=== PATIENT | male | born 1985 | race Caucasian/White ===

== ENCOUNTER → 2019-08-13 07:55 | Outpatient (CLI) | payer BC, SELFPAY ==
[2019-07-24 09:18] VITALS: BMI 26.0
--- NOTE | 2019-08-13 08:08 | ECHOD_ITS ---
Reason For Study: PALPITATIONS Procedure This was a 2D Doppler, Color Flow transthoracic echocardiogram. Exam performed in department. Left Ventricle Normal size and thickness. The estimated ejection fraction is 55 %. No regional wall motion abnormalities noted. Right Ventricle Normal size and thickness. Normal systolic function. Atria Normal left atrium. Normal right atrium. Normal atrial septum. Mitral Valve The mitral valve is structurally normal. No prolapse or stenosis seen. Trivial mitral valve insufficiency. Tricuspid Valve Normal tricuspid valve. Trivial tricuspid valve insufficiency. Unable to estimate RV systolic pressure due to insufficient tricuspid regurgitant envelope. Aortic Valve Normal aortic valve. Trisinus/trileaflet aortic valve. Pulmonic Valve Normal pulmonic valve. Great Vessels Normal aortic root. Normal arch. Normal inferior vena cava. Inferior vena cava collapse with sniff. Pericardium/Pleural No pericardial effusion. MMode/2D Measurements & Calculations LVIDd: 5.5 cm IVSd: 0.88 cm Ao root diam: 3.4 cm LVIDs: 3.7 cm LVPWd: 0.94 cm RVDd: 3.4 cm FS: 31.9 % LAV(MOD-bp): 46.1 ml EDV(MOD-sp4): 112.3 ml EDV(MOD-sp2): 102.8 ml LAV(MOD-bp) Indexed: 22.0 ml/m2 ESV(MOD-sp4): 45.8 ml EF(MOD-sp2): 54.0 % LAV(MOD-sp2): 50.1 ml EF(MOD-sp4): 59.2 % LAV(MOD-sp4): 40.4 ml SV(MOD-sp4): 66.4 ml SV(MOD-sp2): 55.5 ml LA A4 area: 16.3 cm2 LA dimension(2D): 4.3 cm RA A4 area: 12.5 cm2 Time Measurements MV dec time: 0.32 sec Doppler Measurements & Calculations MV E max kelvin: 53.2 cm/sec Lat Peak E' Kelvin: 16.1 cm/sec Med Peak E' Kelvin: 9.2 cm/sec MV A max kelvin: 40.0 cm/sec E/E' lat: 3.3 E/E' med: 5.8 MV E/A: 1.3 Ao V2 max: 111.2 cm/sec LV V1 max: 80.7 cm/sec Ao max P.9 mmHg LV V1 max P.6 mmHg Interpretation Summary The estimated ejection fraction is 55 %. Trivial mitral valve insufficiency. Trivial tricuspid valve insufficiency. Unable to estimate RV systolic pressure due to insufficient tricuspid regurgitant envelope. Compared to echo report dated 07/09/2010, no appreciable changes noted. Ordering Physician: Johny Alba Referring Physician: NOLAN JIMÉNEZ Performed By: Coretta Burton, EDD, RVT
== END ==
PROVIDERS: PCP Internal Medicine; Referring Provider Internal Medicine Cardiovascular Disease; Visit Provider Internal Medicine Cardiovascular Disease
DX: R00.2 Palpitations (principal)
CPT/HCPCS: 93306

== ENCOUNTER → 2020-02-19 12:08 | Outpatient (CLI) | payer BC, SELFPAY ==
[2020-02-06 13:00] VITALS: BMI 27.3
== END ==
PROVIDERS: PCP Internal Medicine; Referring Provider Nurse Practitioner Family; Visit Provider Nurse Practitioner Family
DX: R00.2 Palpitations (principal)
CPT/HCPCS: 93225; 93226

== ENCOUNTER 2020-08-14 11:14 | Outpatient (RCR) | payer BC, SELFPAY ==
[2020-02-06 13:00] VITALS: BMI 27.3
== END 2020-09-18 23:59 ==
LOC: IMMUN 11:14
PROVIDERS: PCP Internal Medicine; Visit Provider Family Medicine
DX: Z23 Encounter for immunization (principal)
CPT/HCPCS: 0001A; 0002A; 91300

== ENCOUNTER → 2024-10-11 | Outpatient (CLI) | payer BC, SELFPAY ==
--- NOTE | 2024-10-11 12:40 | RAD_ITS ---
PROCEDURE: HAND MIN 3 VIEWS 10/11/2024 REASON FOR EXAM: SPRAIN OF METACARPOPHALANGEAL JOINT OF RIGHT LITTLE FINGER, INITI TECHNIQUE: HAND MIN 3 VIEWS COMPARISON: None FINDINGS: Bones: No fracture seen. Joints: Normal alignment. Soft tissues: Soft tissues are unremarkable. Other: RAD/Hand Min 3 Views IMPRESSION: NEGATIVE HAND SERIES Reading Location: [place] [id number]
== END | disposition home or self-care (01) ==
LOC: RAD 12:36
PROVIDERS: PCP Internal Medicine
DX: S63.656A Sprain of metacarpophalangeal joint of right little finger, initial encounter (principal); M79.644 Pain in right finger(s)
CPT/HCPCS: 73130

== ENCOUNTER → 2025-03-11 | Outpatient (CLI) | payer BC, SELFPAY ==
--- NOTE | 2025-03-11 14:07 | ECHOD_ITS ---
Reason For Study Reason For Study: PVC's Procedure This was a 2D Doppler, Color Flow transthoracic echocardiogram. Exam performed in department. Left Ventricle Normal-sized left ventricle. Normal left ventricular wall thickness. Left ventricular EF by Chun's biplane: 58%. Normal diastolic function. No regional wall motion abnormalities noted. Right Ventricle Normal right ventricle. Normal systolic function. Unable to estimate RV systolic pressure due to insufficient tricuspid regurgitant envelope. Atria The left and right atria are normal. Right atrial pressure estimated at: 3 mmHg. Normal atrial septum. Mitral Valve Normal mitral valve. No mitral stenosis. Trace mitral regurgitation. Tricuspid Valve Normal tricuspid valve. Trace tricuspid regurgitation. No tricuspid stenosis. Aortic Valve Trileaflet aortic valve. No hemodynamically significant aortic stenosis. No aortic regurgitation. Pulmonic Valve Normal pulmonic valve. No pulmonic stenosis. Trace pulmonic regurgitation. Great Vessels Normal sized aortic root. Normal ascending aorta. Pericardium/Pleural No pericardial effusion. MMode/2D Measurements & Calculations LVIDd: 5.3 cm IVSd: 0.90 cm Ao root diam: 3.2 cm LVIDs: 3.6 cm LVPWd: 0.83 cm RVDd: 3.3 cm FS: 32.7 % LAV(MOD-bp): 46.1 ml LVAd ap4: 30.3 cm2 SV(MOD-sp4): 53.5 ml LAV(MOD-bp) Indexed: 21.9 ml/m2 LVLd ap4: 8.3 cm SI(MOD-sp4): 25.4 ml/m2 LAV(MOD-sp2): 49.1 ml EDV(MOD-sp4): 92.7 ml LAV(MOD-sp4): 39.5 ml EDV(sp4-el): 94.0 ml LVAs ap4: 17.9 cm2 LVLs ap4: 6.8 cm ESV(MOD-sp4): 39.2 ml ESV(sp4-el): 39.9 ml EF(MOD-sp4): 57.7 % EF(sp4-el): 57.6 % SV(sp4-el): 54.1 ml LA A4 area: 16.3 cm2 LA dimension(2D): 4.2 cm RA A4 area: 11.4 cm2 Time Measurements MV dec time: 0.15 sec Doppler Measurements & Calculations MV E max kelvin: 85.9 cm/sec Lat Peak E' Kelvin: 17.4 cm/sec Med Peak E' Kelvin: 10.9 cm/sec MV A max kelvin: 76.3 cm/sec E/E' lat: 4.9 E/E' med: 7.9 MV E/A: 1.1 Ao V2 max: 139.1 cm/sec LV V1 max: 108.7 cm/sec MV dec slope: 571.5 cm/sec2 Ao max P.8 mmHg LV V1 max P.7 mmHg Ao V2 mean: 98.5 cm/sec LV V1 mean P.6 mmHg Ao mean P.4 mmHg LV V1 mean: 75.1 cm/sec Ao V2 VTI: 30.9 cm LV V1 VTI: 23.3 cm AV (velocity ratio): 0.75 PA V2 max: 112.2 cm/sec PI end-d kelvin: 90.9 cm/sec ECHO/Echo Complete Interpretation Summary Normal left ventricular systolic function, with EF: 58% by Chun's biplane. Normal left ventricular diastolic function Normal left ventricular wall motion Normal right ventricular systolic function No hemodynamically significant valvular disease Ordering Physician: Dejon Beck Referring Physician: Fran Watson Performed By: Tamiko Beck, EDD, RVT
--- OUTSIDE RECORDS SUMMARY | 2025-03-11 18:10 | XMS RPT_ITS | CCD ---
Author Organization [facility] Care Team Providers Care Group Account Director Name Role Phone Amirneni, Vamsee K. Unavailable Unavailable Amirneni, Vamsee K. Unavailable Unavailable Amirneni, Fran Ward Primary Care Provider FRAN WATSON Referring Unavail able AMIRNENADEGE, ELENHCARLOS WARD Primary Care Unavail able AMIRNENADEGE, FRAN WARD Admitting Unavail able Ele Watson MDdccarlos Ward Primary Care Provide r Fran Watson MD [facility] Care Provide r Fran Watson MD Unavailable FRAN WATSON Attending Unavail able AMIRELE CROUCHNHCARLOS WARD Primary Care Unavail able GREGORIO JAMES Attending Unavailable AMIRWILLA, FRAN WARD Referring Unavail able AMIRWILLA, FRAN WARD Primary Care Unavail able AMIRNENI, FRAN MORRISSEYISHNA Admitting Unavail able AMIRNENI, FRAN BLANCHARDNA Referring Unavail able AMIRNENADEGE, FRAN BLANCHARDNA Attending Unavail able AMIRNENADEGE, ELENHCARLOS WARD Primary Care Unavail able Fran Watson MD Unavailable SARAHY PIERCE Referring Unavailable SARAHY PIERCE Admitting Unavailable AMIRWILLA, FRAN WARD Primary Care Unavail able SARAHY PIERCE Attending Unavailable FRAN WATSON Primary Care Unavail able Dr. Fran Watson MD Primary Care Provider Louann Luo Attending Provider Louann Luo Referring Provider Dejon Beck Attending Unavailable [facility] Primary Care Unavailable [facility] Referring Unavailable Dejon Beck Attending Unavailable [facility] Primary Care Unavailable [facility] Referring Unavailable Louann Luo Referring Unavailable [facility] Primary Care Unavailable Louann Luo Attending Unavailable Allergies Allergy Classification Reported Allergen(s) Allergy Type Date of Onset Reaction(s) Facility (20 sources) Penicillins; Translations: [PENICILLINS] Propensity to adverse reactions to drug 03-04-2019 Unknown [facility] Medications Current Medications Medication Drug Class(es) Dates Sig (Normalized) Sig (Original) azithromycin 250 mg oral tablet (3 sources) Macrolide Antimicrobial Start: 03-23-2024 End: 03-28-2024 take 2 tablets by mouth once daily, then take 1 tablet by mouth once daily azithromycin (Zithromax Z-Erick) 250 MG tablet Indications: Pneumonia of left lower lobe due to infectious organism Take 2 (two) tablets (500 mg total) by mouth daily for 1 day, THEN 1 (one) tablet (250 mg total) daily for 4 days. 6 tablet 03/23/2024 03/28/2024 Active Start: 04-30-2019 End: 06-10-2019 take 2 tablets by mouth once daily, then take 1 tablet by mouth, then take 1 tablet by mouth once daily azithromycin (Z-ERICK) 5 day dose pack Take two tablets by mouth on day 1, then one tablet by mouth once daily until finished. . 6 tablet 0 04/30/2019 06/10/2019 Discontinued Start: 04-30-2019 take 2 tablets by mo uth once daily, then take 1 tablet by mouth, then take 1 tablet by mouth once daily azithromycin (Z-ERICK) 5 day dose pack Take two tablets by mouth on day 1, then one tablet by mouth once daily until finished. . 6 tablet 0 04/30/2019 Active dextromethorphan hydrobromide 15 mg / guaiFENesin 400 mg / pseudoephedrine hydrochloride 60 mg oral tablet (1 source) alpha-Adrenergic Agonist, Uncompetitive L-bnjiht-G-aspartate Receptor Antagonist, Sigma-1 Agonist Start: 03-23-2024 take 1 tablet by mouth every six hours as needed nkjqjdsxynaxisv-PZ-lchuARDgalf 60-15-400 mg Tab Indications: Pneumonia of left lower lobe due to infectious organism Take 1 (one) tablet by mouth every 6 (six) hours as needed . 20 tablet 03/23/2024 Active Start: 03-23-2024 take 1 tablet by asia th every six hours as needed mxanhrvjhuaqgnu-YZ-xserBDJznda 60-15-400 mg Tab Indications: Pneumonia of left lower lobe due to infectious organism Take 1 (one) tablet by mouth every 6 (six) hours as needed . 20 tablet 03/23/2024 Active doxycycline hyclate 100 mg oral capsule (1 source) Tetracycline-class Drug Start: 06-18-2022 End: 06-28-2022 take 1 capsule by mouth twice daily doxycycline hyclate (VIBRAMYCIN) 100 MG capsule Indications: Sinusitis, unspecified chronicity, unspecified location Take 1 (one) capsule (100 mg total) by mouth 2 (two) times a day for 10 days . 20 capsule 0 06/18/2022 06/28/2022 Active [employer] (Nk) (1 source) Start: 01-31-2024 [employer] (Nk) Active January 31, 2024 12:00am Completed/Discontinued Medications Medication Drug Class(es) Dates Sig (Normalized) Sig (Original) benzonatate 100 mg oral capsule (2 sources) Non-narcotic Antitussive Start: 06-18-2022 End: 04-18-2023 benzonatate (Tessalon Perles) 100 MG capsule Indications: Acute cough Take one or two capsules every 8 hours as needed for cough. Do not chew. . 60 capsule 1 06/18/2022 04/18/2023 Discontinued calcium chloride 0.0014 meq/ml / potassium chloride 0.004 meq/ml / sodium chloride 0.103 meq/ml / sodium lactate 0.028 meq/ml injectable solution (1 source) Start: 10-18-2019 End: 10-18-2019 lactated [facility] infusion ciprofloxacin 500 mg oral tablet (2 sources) Quinolone Antimicrobial Start: 03-19-2019 End: 04-30-2019 take 1 tablet by mouth twice daily ciprofloxacin HCl (CIPRO) 500 MG tablet Take 1 (one) tablet (500 mg total) by mouth 2 (two) times a day . 14 tablet 0 03/19/2019 04/30/2019 Discontinued docusate sodium 100 mg oral capsule (8 sources) Start: 03-21-2019 End: 06-11-2019 take 2 capsules by mouth twice daily docusate sodium (COLACE) 100 MG capsule Take 2 (two) capsules (200 mg total) by mouth 2 (two) times a day . 60 capsule 1 03/21/2019 06/11/2019 Discontinued (Therapy completed) End: 03-21-2019 take 2 capsules by mouth once daily docusate sodium (COLACE) 100 MG capsule Take 200 mg by mouth daily . 0 03/21/2019 Discontinued (Reorder) 12 hr fexofenadine hydrochloride 60 mg / pseudoephedrine hydrochloride 120 mg extended release oral tablet (3 sources) alpha-Adrenergic Agonist, Histamine-1 Receptor Antagonist Start: 01-11-2021 End: 06-18-2022 take 1 tablet by mouth twice daily fexofenadine-pseudoePHEDrine (Sruthi-D 12 Hour) 60-120 mg per tablet Take 1 (one) tablet by mouth 2 (two) times a day . 60 tablet 2 01/11/2021 06/18/2022 Discontinued (Patient's Request) fluticasone propionate 0.05 mg/actuat metered dose nasal spray (4 sources) Corticosteroid Start: 01-11-2021 End: 06-18-2022 take 2 spray(s) nasal route once daily fluticasone propionate (FLONASE) 50 mcg/actuation nasal spray Instill 2 (two) sprays into each nostril daily . 16 g 2 02/05/2021 06/18/2022 Discontinued (Patient's Request) hyoscyamine sulfate 0.125 mg sublingual tablet (1 source) Start: 10-18-2019 End: 10-18-2019 hyoscyamine (LEVSIN/SL) SL tablet 125 mcg Start: 10-18-2019 End: 10-18-2019 hyoscyamine (LEVSIN/SL) SL t ablet 125 mcg iopamidol (ISOVUE-370) 76 % injection 75 mL (1 source) Start: 03-19-2019 End: 03-19-2019 iopamidol (ISOVUE-370) 76 % injection 75 mL 24 hr metoprolol succinate 25 mg extended release oral tablet (20 sources) beta-Adrenergic Nicole Start: 03-10-2017 End: 01-31-2024 take 1 tablet by mouth once daily Metoprolol Succinate 25 mg tablet extended release 24 hr Discontinued 25 mg PO daily 90 3 January 31, 2024 8:08am January 31, 2024 8:38am take 1 tablet by mouth once colt y metoprolol succinate (TOPROL-XL) 50 MG 24 hr tablet Take 25 mg by mouth daily . 0 Active metroNIDAZOLE 500 mg oral tablet (2 sources) Nitroimidazole Antimicrobial Start: 03-19-2019 End: 04-30-2019 take 1 tablet by mouth three times daily at mealtime metroNIDAZOLE (FLAGYL) 500 MG tablet Take 1 (one) tablet (500 mg total) by mouth 3 (three) times a day with meals . 21 tablet 0 03/19/2019 04/30/2019 Discontinued polyethylene glycol 3350 21041 mg powder for oral solution (6 sources) Osmotic Laxative End: 09-23-2019 polyethylene glycol (MIRALAX) 17 gram powder Take 17 g by mouth daily as needed . 0 09/23/2019 Discontinued (Therapy completed) predniSONE 20 mg oral tablet (2 sources) Start: 06-18-2022 End: 04-18-2023 predniSONE (DELTASONE) 20 MG tablet Indications: Acute cough Take 2 tablets daily for 5 days. . 10 tablet 0 06/18/2022 04/18/2023 Discontinued Problems Active Problems Problem Classification Problem Date Documented Da te Episodic/Chronic Cardiac dysrhythmias (17 sources) Ventricular premature beats; Translations: [Ventricular premature depolarization] Onset: 9 03-04-2019 Chronic Cardiac dysrhythmias (4 sources) Palpitations; Translations: [Palpitations] 03-14-2017 Episodic Disorders of teeth and jaw (1 source) Loss of teeth due to extraction; Translations: [Partial loss of teeth, unspecified cause, unspecified class] 2021 Episodic Immunizations and screening for infectious disease (5 sources) Patient encounter status; Translations: [Encounter for screening for human immunodeficiency virus [HIV]] Onset: 4 04-18-2023 Episodic Noninfectious gastroenteritis (2 sources) Colitis; Translations: [Colitis, acute] Onset: 9 03-21-2019 Episodic Nonspecific chest pain (1 source) Chest discomfort; Translations: [Other chest pain] 04-17-2017 Episodic Other diseases of veins and lymphatics (2 sources) Scrotal varices; Translations: [Scrotal varices] Onset: 4 Episodic Other gastrointestinal disorders (1 source) Chronic idiopathic constipation; Translations: [Chronic idiopathic constipation] 05-24-2023 Chronic Other lower respiratory disease (5 sources) Cough; Translations: [Cough] Onset: 1 Episodic Other male genital disorders (2 sources) Hydrocele, unspecified; Translations: [Hydrocele, unspecified] Onset: 4 Episodic Other male genital disorders (4 sources) Left testicular pain; Translations: [Left testicular pain] Onset: 4 Episodic Other screening for suspected conditions (not mental disorders or infectious disease) (5 sources) Viral screening status; Translations: [Encounter for screening for other viral diseases] Onset: 4 04-18-2023 Episodic Other upper respiratory disease (8 sources) Allergic rhinitis; Translations: [Other allergic rhinitis] Onset: 1 Chronic Other upper respiratory infections (1 source) Sinusitis; Translations: [Chronic sinusitis, unspecified] Chronic Pneumonia (except that caused by tuberculosis or sexually transmitted disease) (3 sources) Left lower zone pneumonia; Translations: [Pneumonia, unspecified organism] Onset: 4 03-23-2024 Episodic Unclassified (1 source) Acute cough; Translations: [Acute cough] Onset: 4 Past or Other Problems Problem Classification Problem Date Documented Date Episodic/Chronic Abdominal pain (20 sources) Left lower quadrant pain; Translations: [Left lower quadrant pain] Onset: 9 03-04-2019 Episodic Other diseases of veins and lymphatics (5 sources) Varicocele; Translations: [Scrotal varices] Onset: 4 05-01-2023 Episodic Other gastrointestinal disorders (20 sources) Chronic constipation; Translations: [Other constipation] Onset: 9 03-04-2019 Episodic Other male genital disorders (5 sources) Pain of left testicle; Translations: [Left testicular pain] Onset: 4 04-18-2023 Episodic Other male genital disorders (5 sources) Disorder of reproductive system; Translations: [Hydrocele, unspecified] Onset: 4 05-01-2023 Episodic Other upper respiratory infections (9 sources) Acute pharyngitis; Translations: [Posterior rhinorrhea] Onset: 1 Episodic Spondylosis; intervertebral disc disorders; other back problems (18 sources) Acute low back pain; Translations: [Acute bilateral low back pain without sciatica] Onset: 9 Resolved: 0 03-04-2019 Episodic Sprains and strains (1 source) Sprain of metacarpophalangeal joint of right little finger, initial encounter; Translations: [Sprain of metacarpophalangeal joint of right little finger, initial encounter] Onset: 5 Episodic Unclassified (1 source) Acute cough; Translations: [Acute cough] Onset: 4 Results Test Name Value Interpretation Reference Range Facility Cardiology Visit Reporton Cardiology Visit Report [facility] [facility] [place] [address] OFFICE VISIT Date of Service: 02/10/25 MR#: [id number] Acct: [id number] Name: BART HOOKER Rep #: [id number] : 1985 Provider: MADDI gorman Age/Sex: 40/M Location: [facility] Status: Signed HPI HPI History of Present Illness Details: This is a 40-year-old white male who presents today for outpatient cardiovascular follow-up of a history of underlying PVCs/nonsustained VT previously evaluated by [facility] by Dr. Dejon Ulloa of electrophysiology-2010. Based upon his history and information hand it appears he had undergone a noninvasive evaluation which included over time a transthoracic echocardiogram, a chest CTA, a cardiac MRI, a Holter monitor, as well as a sleep study. He did not require EPS/RFA. It appears that his ectopy was thought related to caffeine use. He notes as he decreased and discontinued his caffeine, along with being initially on beta-blockers and calcium channel blockers then back to beta-blockers. Beta-blockers ultimately discontinued as he was symptomatically doing well. He denies chest, arm, jaw, or neck discomfort. He states palpitations 1-2 times per month. He describes it as irregular (bird in the birdcage feeling). This lasts for less than 1 minuets maybe 15-30 seconds. This is improved since stopping wine He denies bilateral lower extremity edema. He denies claudication. He denies shortness of breath with activity, shortness of breath at rest, orthopnea, or PND. He denies chronic cough. He denies significant, sudden weight gain. He denies lightheadedness, dizziness, near-syncope, or syncope. He denies blood in urine, blood in stool, or epistaxis. He denies fever with chills. He denies myalgia. He denies fatigue. His exercise level has remained stable. 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: No Is patient in pain?: No Allergies Penicillins Allergy (Verified 01/31/24 08:38) Unknown Medications ???Medication ???Instructions ???Recorded ???Confirmed ???Type NK 01/31/24 02/10/25 History Ejection fraction %: 55 Have you fallen in the past year?: No PFSH Medical History Tachycardia Palpitations Chest discomfort Depression Anxiety Paroxysmal ventricular tachycardia Surgical History H/O wisdom tooth extraction Family History Grandfather CVA (cerebral vascular accident) Grandmother Myocardial infarction in her late 80's Social History Smoking Status: Never smoker alcohol intake: current alcohol intake frequency: 0-2 drinks per day substance use type: does not use caffeine: No ROS Const Const: Negative for fatigue, weakness, headache(s) or frequent falls Eyes Eyes: Negative for blurry vision ENT ENT: Negative for headache(s), dizziness or Nosebleed/epistaxis Cardio Chest Pain: No Palpitations: No Edema: None Muscle aches with walking: None Resp Respiratory: Negative for SOB with activity, SOB at rest or SOB orthopnea SOB lying down GI GI: Negative nausea, vomiting, heartburn, bright, red blood in stools or black,tarry stools : Negative for hematuria Musc Musc: Negative for muscle aches/ myalgia Skin Skin: Negative non-healing lesions or rash Neuro Neuro: Negative for dizziness, lightheadedness, near syncope, syncope, frequent falls, headache(s), weakness or blurry vision Endo Endo: Negative for fatigue Allergy Allergy/Immunology: Negative for rash Cardiology Exam Const Appearance: cooperative, healthy appearing, comfortable and no acute distress Nutritional Appearance: well nourished and overweight Orientation: alert, awake and oriented x3 Head Head: normal to inspection Ears: hearing grossly normal bilaterally Nose: external nose normal Face and Sinus: face symmetric Mouth: moist mucous membranes Eyes General: appearance normal, both eyes and all related structures Eyelids: eyelids normal EOM: EOM intact bilaterally Neck Neck: normal visual inspection and no JVD Carotids: normal carotid upstroke Chest Chest inspection: normal inspection of the chest, symmetric chest movement and normal respiratory effort; Negative cough Auscultation: Bilateral: Clear to Auscultation Cardio Rate: regular rate Rhythm: regular rhythm Heart sounds: S1 normal and S2 normal; Negative rub, schmidt (more content not included)... Normal [facility] Hand Min 3 Viewson Hand Min 3 Views [facility] Imaging Services [address] [place], [place] [id number] Hand Min 3 Views MR#: [id number] Acct: [id number] Name: BART HOOKER Rep #: [id number] : 1985 M 39 From: Regan freed MD PCP: Dr. Fran Watson MD Status: REG CLI Study: Hand Min 3 Views Date of Exam: 10/11/24 Exam# [id number] Ordering Dr: Louann Miller PA PROCEDURE: HAND MIN 3 VIEWS 10/11/2024 REASON FOR EXAM: SPRAIN OF METACARPOPHALANGEAL JOINT OF RIGHT LITTLE FINGER, INITI TECHNIQUE: HAND MIN 3 VIEWS COMPARISON: None FINDINGS: Bones: No fracture seen. Joints: Normal alignment. Soft tissues: Soft tissues are unremarkable. Other: RAD/Hand Min 3 Views IMPRESSION: NEGATIVE HAND SERIES Reading Location: [place] [address] CC: Dr. 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 This test has not been approved for use in asymptomatic patients and its performance in this patient population has not been evaluated. Negative results do not rule out the presence of SARS-CoV-2/COVID-19. COVID-19, Molecularon 2023 SARS-CoV-2 (COVID-19) RdRp gene JOSE ARMANDO+probe Ql (Resp) Not detected Not Detected [facility] Comment on above: Testing was performe d using the Alvarado ID NOW COVID-19 assay on the [employer] platform. This test has not been approved for use in asymptomatic patients and its performance in this patient population has not been evaluated. Negative results do not rule out the presence of SARS-CoV-2/COVID-19. POC INFLUENZA A/B MOLECULARo n 03-23-2024 POC INFLUENZA A, MOLECULAR Negative Normal Negative [facility] POC INFLUENZA B, MOLECULAR Negative Normal Negative [facility] POC Influenza A/B, Molecular on 03-23-2024 FLUAV RNA JOSE ARMANDO+probe Ql (Unsp spec) Negative Negative [facility] FLUBV RNA JOSE ARMANDO+probe Ql (Unsp spec) Negative Negative [facility] Interpretation and review of laboratory results Normal [facility] SARS-CoV-2 (COVID-19) RdRp g bulmaro JOSE ARMANDO+probe Ql (Resp)on 03-23-2024 Interpretation and review of laboratory results Normal [facility] XR CHEST AP/PA AND LATon XR CHEST AP/PA AND LAT EXAMINATION: XR CHEST AP/PA AND LAT HISTORY: ORDERING SYSTEM PROVIDED HISTORY: cough and fever x 3 days, TECHNOLOGIST PROVIDED HISTORY: Illness/Other Reason for exam: cough Cancer History: unknown Surgery, RadiationHistory: unknown Encounter Type: Initial Additional signs and symptoms: fever x's 3 days ORDERING SYSTEM PROVIDED DIAGNOSIS CODES: R05.1 Acute cough COMPARISON: Chest radiograph dated 06/18/2022. TECHNIQUE: PA and lateral views of the chest performed. FINDINGS: The trachea is midline. The heart size is normal. There is a large area of patchy left lower lobe airspace disease which in the right clinical setting is consistent with a pneumonia. There is minimal blunting of the left lateral costophrenic angle suggesting a trace amount of pleural fluid. There is no pulmonary vascular congestion. There is no pneumothorax or osseous abnormality. IMPRESSION: There is a large area of patchy left lower lobe airspace disease which in the right clinical setting is consistent with a pneumonia. There is minimal blunting of the left lateral costophrenic angle suggesting a trace amount of pleural fluid. Workstation ID: [id number] Dictated by: CATHERINE KNOWLES on [facility] Mar 23, 2024 12:41:11 PM EST Transcribed by: CATHERINE KNOWLES on [facility] Mar 23, 2024 12:41:11 PM EST Finalized by: CATHERINE KNOWLES on [facility] Mar 23, 2024 12:41:11 PM EST Normal [facility] Comment on above: Order Comment: Injur y/Trauma or Illness?:Illness/Other How long have you had these symptoms (acute/chronic)?:Acute Reason for exam?:cough History of cancer?:unknown Surgeries, chemotherapy, or radiation?:unknown Type of Exam?:Initial Additional signs and symptoms?:fever x's 3 days XR Chest PA and Lateral and AP lateral-decubituson 03-23-2024 There is a large area of patchy left lower lobe airspace disease which in the right clinical setting is consistent with a pneumonia. There is minimal blunting of the left lateral costophrenic angle suggesting a trace amount of pleural fluid. Workstation ID: [id number] [facility] EXAMINATION: XR CHEST AP/PA AND LAT HISTORY: ORDERING SYSTEM PROVIDED HISTORY: cough and fever x 3 days, TECHNOLOGIST PROVIDED HISTORY: Illness/Other Reason for exam: cough Cancer History: unknown Surgery, RadiationHistory: unknown Encounter Type: Initial Additional signs and symptoms: fever x's 3 days ORDERING SYSTEM PROVIDED DIAGNOSIS CODES: R05.1 Acute cough COMPARISON: Chest radiograph dated 06/18/2022. TECHNIQUE: PA and lateral views of the chest performed. FINDINGS: The trachea is midline. The heart size is normal. There is a large area of patchy left lower lobe airspace disease which in the right clinical setting is consistent with a pneumonia. There is minimal blunting of the left lateral costophrenic angle suggesting a trace amount of pleural fluid. There is no pulmonary vascular congestion. There is no pneumothorax or osseous abnormality. [facility] Catherine Knowles MD - 03/23/2024 EXAMINATION: XR CHEST AP/PA AND LAT HISTORY: ORDERING SYSTEM PROVIDED HISTORY: cough and fever x 3 days, TECHNOLOGIST PROVIDED HISTORY: Illness/Other Reason for exam: cough Cancer History: unknown Surgery, RadiationHistory: unknown Encounter Type: Initial Additional signs and symptoms: fever x's 3 days ORDERING SYSTEM PROVIDED DIAGNOSIS CODES: R05.1 Acute cough COMPARISON: Chest radiograph dated 06/18/2022. TECHNIQUE: PA and lateral views of the chest performed. FINDINGS: The trachea is midline. The heart size is normal. There is a large area of patchy left lower lobe airspace disease which in the right clinical setting is consistent with a pneumonia. There is minimal blunting of the left lateral costophrenic angle suggesting a trace amount of pleural fluid. There is no pulmonary vascular congestion. There is no pneumothorax or osseous abnormality. IMPRESSION: There is a large area of patchy left lower lobe airspace disease which in the right clinical setting is consistent with a pneumonia. There is minimal blunting of the left lateral costophrenic angle suggesting a trace amount of pleural fluid. Workstation ID: [id number] [facility] Radiology Study observation (narrative) [facility] XR Chest PA and Lateral and AP lateral-decubitusOrdered By: Catherine Knowles on 03-23-2024 [facility] Work Phone: Measure post void residualon 05-22-2023 Measure Post Void Residual 0 [facility] Urinalysis macro (dipstick) panel (U)Ordered By: Xochitl He on 05-22-2023 Bilirubin Ql (U) Negative Negative [facility] Glucose Ql (U) Negative Normal, Negative mg/dL [facility] Hemoglobin Ql (U) Negative Negative [facility] Interpretation and review of laboratory results Normal [facility] Ketones Ql (U) Negative Negative mg/dL [facility] Leukocyte esterase Test strip Ql (U) Negative Negative [facility] Nitrite Ql (U) Negative Negative [facility] pH (U) 7.0 [pH] 5.0 - 7.0 [facility] Protein Ql (U) Negative Negative mg/dL [facility] Specific gravity (U) [Rel density] 1.015 1.005 - 1.025 [facility] Urobilinogen Qn (U) 0.2 mg/dL <2.0, 0. 2, Normal, Negative, 1.0, 2.0, <1.0 [facility] US TESTICLE WITH COLOR FLOWo n 05-01-2023 US TESTICLE WITH COLOR FLOW EXAMINATION: US TESTICLE WITH COLOR FLOW HISTORY: ORDERING SYSTEM PROVIDED HISTORY: Testicular pain, left, TECHNOLOGIST PROVIDED HISTORY: Illness/Other Reason for exam: Left testicular pain intermittent for 2yrs Cancer History: unknown Surgery, RadiationHistory: unknown Encounter Type: Initial Additional signs and symptoms: no ORDERING SYSTEM PROVIDED DIAGNOSIS CODES: N50.812 Testicular pain, left COMPARISON: None TECHNIQUE: Grayscale and color imaging was performed FINDINGS: Scanning of the right scrotal sac demonstrates the right testicle to measure 3.9 x 2.7 x 2.3 cm. There is a homogeneous echotexture with no discrete solid or cystic masses. The epididymis appears normal. Scanning of the left scrotal sac demonstrates the left testicle to measure 3.9 x 2.1 x 3.2 cm. There is a homogeneous echotexture with no discrete solid or cystic masses. Color flow is noted. There is a small left hydrocele. Within the left scrotal sac there are several serpiginous sonolucencies with color flow with Valsalva consistent with a left varicocele. IMPRESSION: 1. Normal-appearing testicles with color flow. 2. Small left hydrocele. 3. Left varicocele Workstation ID: [id number] Dictated by: BART TAVERA on MonMay 01, 2023 8:15:19 AM EST Transcribed by: BART TAVERA on MonMay 01, 2023 8:15:19 AM EST Finalized by: BART TAVERA on MonMay 01, 2023 8:15:19 AM EST Normal [facility] Comment on above: Order Comment: Injur y/Trauma or Illness?:Illness/Other How long have you had these symptoms (acute/chronic)?:Chronic Reason for exam?:Left testicular pain intermittent for 2yrs History of cancer?:unknown Surgeries, chemotherapy, or radiation?:unknown Type of Exam?:Initial Additional signs and symptoms?:no XR Chest AP/PA and LATon No acute pulmonary findings. DPR/mll Workstation ID: [id number] EXAMINATION: XR CHEST AP/PA AND LAT 06/18/2022 5:02 pm HISTORY: ORDERING SYSTEM PROVIDED HISTORY: cough x 3 weeks, TECHNOLOGIST PROVIDED HISTORY: Illness/Other Reason for exam: cough Cancer History: n Surgery, RadiationHistory: n Encounter Type: Initial Additional signs and symptoms: none ORDERING SYSTEM PROVIDED DIAGNOSIS CODES: R05.1 Acute cough COMPARISON: January 11, 2021. FINDINGS: PA and lateral views of the chest demonstrate the lungs to be clear of consolidations and no effusions are identified. The heart size is within normal limits and the osseous structures appear intact. [facility] Bart Lerma MD - 06/18/2022 EXAMINATION: XR CHEST AP/PA AND LAT 06/18/2022 5:02 pm HISTORY: ORDERING SYSTEM PROVIDED HISTORY: cough x 3 weeks, TECHNOLOGIST PROVIDED HISTORY: Illness/Other Reason for exam: cough Cancer History: n Surgery, RadiationHistory: n Encounter Type: Initial Additional signs and symptoms: none ORDERING SYSTEM PROVIDED DIAGNOSIS CODES: R05.1 Acute cough COMPARISON: January 11, 2021. FINDINGS: PA and lateral views of the chest demonstrate the lungs to be clear of consolidations and no effusions are identified. The heart size is within normal limits and the osseous structures appear intact. IMPRESSION: No acute pulmonary findings. DPR/Open [facility] Workstation ID: [id number] [facility] Radiology Study observation (narrative) [facility] XR Chest AP/PA and LATOrdere d By: Bart Lerma on 06-18-2022 [facility] Work Phone: COVID-19, MOLECULARon 2020 SARS-CoV-2 (COVID-19) RNA JOSE ARMANDO+probe Ql (Unsp spec) Not detected Normal Not Detected [facility] Comment on above: Result Comment: This test was performed under the FDA's Emergency Use Authorization (EUA). Testing was performed using the Wong SARS-CoV-2 RT-PCR assay on the Pallavi Wong 6800 System. This test has not been approved for use in asymptomatic patients and its performance in this patient population has not been evaluated. Negative results do not rule out the presence of SARS-CoV-2/COVID-19. Fact sheets for this EUA can be found at the following links: For Healthcare Providers: https://www.fda.gov/media/005917/download For Patients: https://www.fda.gov/media/829074/download Performed By: #### L [id number] #### [facility] [address] [place] [address] Florentin Hayes M.D. [id number] COVID-19, MolecularOrdered B y: Bret Jones on 01-11-2021 SARS-CoV-2 (COVID-19) RNA JOSE ARMANDO+probe Ql (Resp) Not detected Not Detected [facility] Comment on above: This test was perfor med under the FDA's Emergency Use Authorization (EUA). Testing was performed using the Wong SARS-CoV-2 RT-PCR assay on the Pallavi Wong 6800 System. This test has not been approved for use in asymptomatic patients and its performance in this patient population has not been evaluated. Negative results do not rule out the presence of SARS-CoV-2/COVID-19. Fact sheets for this EUA can be found at the following links: For Healthcare Providers: https://www.fda.gov/media/050197/download For Patients: https://www.fda.gov/media/270877/download SARS-CoV-2 (COVID-19) RNA NA A+probe Ql (Resp)Ordered By: Bret Jones on 01-11-2021 Interpretation and review of laboratory results Normal [facility] XR CHEST AP/PA AND LATon 1. Clear lungs. No acute cardiopulmonary disease. Workstation ID: [id number] GE RIS EXAMINATION: XR CHEST AP/PA AND LAT 01/11/2021 8:42 am HISTORY: ORDERING SYSTEM PROVIDED HISTORY: Cough, TECHNOLOGIST PROVIDED HISTORY: Illness/Other Reason for exam: cough x 1.5 months Cancer History: n Surgery, RadiationHistory: n Encounter Type: Initial Additional signs and symptoms: n ORDERING SYSTEM PROVIDED DIAGNOSIS CODES: R05.9 Cough FINDINGS: The lungs are clear. There is no focal lung consolidation, pleural effusion or pneumothorax. Pulmonary vasculature is within normal limits. The cardiomediastinal silhouette is normal. Jeferson Randall MD - 01/11/2021 EXAMINATION: XR CHEST AP/PA AND LAT 01/11/2021 8:42 am HISTORY: ORDERING SYSTEM PROVIDED HISTORY: Cough, TECHNOLOGIST PROVIDED HISTORY: Illness/Other Reason for exam: cough x 1.5 months Cancer History: n Surgery, RadiationHistory: n Encounter Type: Initial Additional signs and symptoms: n ORDERING SYSTEM PROVIDED DIAGNOSIS CODES: R05.9 Cough FINDINGS: The lungs are clear. There is no focal lung consolidation, pleural effusion or pneumothorax. Pulmonary vasculature is within normal limits. The cardiomediastinal silhouette is normal. IMPRESSION: 1. Clear lungs. No acute cardiopulmonary disease. Workstation ID: [id number] [facility] Radiology Study observation (narrative) [facility] XR CHEST AP/PA AND LATOrdere d By: Jeferson Lee on 01-11-2021 [facility] Work Phone: Otheron 06-10-2019 No acute abdominal process identified. Workstation ID: [id number] [facility] EXAMINATION: XR ABDO MEN /KUB/FLAT PLATE/1 VIEW HISTORY: LLQ abdominal pain COMPARISON: None TECHNIQUE: Supine view of the abdomen FINDINGS: A nonobstructive bowel gas pattern is demonstrated. There is nothing to suggest organomegaly or soft tissue mass. No abnormal intraabdominal calcifications are identified. The osseous structures are intact. [facility] Interface, Rad In Fu ji Speechq - 06/10/2019 10:20 AM EDT EXAMINATION: XR ABDOMEN /KUB/FLAT PLATE/1 VIEW HISTORY: LLQ abdominal pain COMPARISON: None TECHNIQUE: Supine view of the abdomen FINDINGS: A nonobstructive bowel gas pattern is demonstrated. There is nothing to suggest organomegaly or soft tissue mass. No abnormal intraabdominal calcifications are identified. The osseous structures are intact. IMPRESSION: No acute abdominal process identified. Workstation ID: [id number] [facility] CT ABDOMEN PELVIS WITH CONTR Constance 03-19-2019 1. Moderate colonic stool burden with questionable minimal sigmoid colitis. There is no bowel obstruction. 2. No acute solid organ pathology. No calcified gallstones. Workstation ID: [id number] [facility] EXAMINATION: CT ABDO MEN PELVIS WITH CONTRAST HISTORY: ORDERING SYSTEM PROVIDED HISTORY: LLQ abdominal pain, TECHNOLOGIST PROVIDED HISTORY: Illness/Other Reason for exam: llq pain Encounter Type: Initial Additional signs and symptoms: none ORDERING SYSTEM PROVIDED DIAGNOSIS CODES: R10.32 LLQ abdominal pain COMPARISON: None TECHNIQUE: CT examination of the abdomen and pelvis following the administration of intravenous contrast. Coronal and sagittal reformations were performed. Dose reduction techniques were achieved by using automated exposure control and/or adjustment of mA and/or kV according to patient size and/or use of iterative reconstruction technique. CONTRAST: IOPAMIDOL 76 % INTRAVENOUS SOLUTION - 75 mL, FINDINGS: The imaged heart is normal in size. The lung bases are clear. There is a 1.2 cm cystic density lesion in the liver. The liver is otherwise unremarkable. The spleen and pancreas appear normal. There are no calcified gallstones. There is no adrenal mass. There is no renal mass. There is no obstructive uropathy. The urinary bladder is unremarkable. The prostate is not enlarged. There is a moderate amount of colonic stool present. There is enteric contrast within the stomach and small bowel as well as the proximal colon. No small bowel wall thickening is seen. There is slight wall thickening of the proximal-mid sigmoid colon. There is no bowel dilatation or obstruction. The appendix is not visualized and may be absent. There is no inflammation at the cecal tip. There is no pneumoperitoneum or ascites. There is no abdominal aortic aneurysm. No lymphadenopathy is seen. There is no acute osseous pathology. [facility], Rad In Fu ji Speechq - 03/19/2019 11:09 AM EST EXAMINATION: CT ABDOMEN PELVIS WITH CONTRAST HISTORY: ORDERING SYSTEM PROVIDED HISTORY: LLQ abdominal pain, TECHNOLOGIST PROVIDED HISTORY: Illness/Other Reason for exam: llq pain Encounter Type: Initial Additional signs and symptoms: none ORDERING SYSTEM PROVIDED DIAGNOSIS CODES: R10.32 LLQ abdominal pain COMPARISON: None TECHNIQUE: CT examination of the abdomen and pelvis following the administration of intravenous contrast. Coronal and sagittal reformations were performed. Dose reduction techniques were achieved by using automated exposure control and/or adjustment of mA and/or kV according to patient size and/or use of iterative reconstruction technique. CONTRAST: IOPAMIDOL 76 % INTRAVENOUS SOLUTION - 75 mL, FINDINGS: The imaged heart is normal in size. The lung bases are clear. There is a 1.2 cm cystic density lesion in the liver. The liver is otherwise unremarkable. The spleen and pancreas appear normal. There are no calcified gallstones. There is no adrenal mass. There is no renal mass. There is no obstructive uropathy. The urinary bladder is unremarkable. The prostate is not enlarged. There is a moderate amount of colonic stool present. There is enteric contrast within the stomach and small bowel as well as the proximal colon. No small bowel wall thickening is seen. There is slight wall thickening of the proximal-mid sigmoid colon. There is no bowel dilatation or obstruction. The appendix is not visualized and may be absent. There is no inflammation at the cecal tip. There is no pneumoperitoneum or ascites. There is no abdominal aortic aneurysm. No lymphadenopathy is seen. There is no acute osseous pathology. IMPRESSION: 1. Moderate colonic stool burden with questionable minimal sigmoid colitis. There is no bowel obstruction. 2. No acute solid organ pathology. No calcified gallstones. Workstation ID: [id number] [facility] Vital Signs Date Time Vital Sign Value Performing Clinician Bartolome mullins 03-23-2024 09:16-0500 Body height 182.9 cm Sarahy Pierce PA-C Work Phone: [facility] 03-23-2024 09:16-0500 Body mass index (BMI) [Ratio] 23.73 kg/m2 [place] Pierce PA-C Work Phone: [facility] 03-23-2024 09:16-0500 Body temperature 99.1 [degF] Sarahy Pierce PA-C Work Phone: [facility] 03-23-2024 09:16-0500 Body weight 79.38 kg [place] PA-C Work Phone: [facility] 03-23-2024 09:16-0500 Diastolic blood pressure 75 mm[Hg] [place] Pierce PA-C Work Phone: [facility] 03-23-2024 09:16-0500 Heart rate 98 /min [place] Pierce PA-C Work Phone: [facility] 03-23-2024 09:16-0500 Respiratory rate 16 /min Sarahy Pierce PA-C Work Phone: [facility] 03-23-2024 09:16-0500 SaO2% (BldA) [Mass fraction] 96 % Sarahy Pierce PA-C Work Phone: [facility] 03-23-2024 09:16-0500 Systolic blood pressure 106 mm[Hg] Sarahy Pierce PA- C Work Phone: [facility] 05-22-2023 13:10-0500 Diastolic blood pressure 92 mm[Hg] Gregorio James MD Work Phone: [facility] 05-22-2023 13:10-0500 Heart rate 99 /min Grgeorio James MD Work Phone: [facility] 05-22-2023 13:10-0500 SaO2% (BldA) [Mass fraction] 98 % Gregorio James MD Work Phone: [facility] 05-22-2023 13:10-0500 Systolic blood pressure 131 mm[Hg] Gregorio James MD Work Phone: [facility] 04-18-2023 16:55-0500 Diastolic blood pressure 90 mm[Hg] Fran Watson MD Work Phone: [facility] 04-18-2023 16:55-0500 Systolic blood pressure 124 mm[Hg] Fran Watson MD Work Phone: [facility] 04-18-2023 16:23-0500 Body height 182.9 cm Fran Watson MD Work Phone: [facility] 04-18-2023 16:23-0500 Body mass index (BMI) [Ratio] 28.86 kg/m2 Fran Watson MD Work Phone: [facility] 04-18-2023 16:23-0500 Body temperature 98.2 [degF] Fran Watson MD Work Phone: [facility] 04-18-2023 16:23-0500 Body weight 96.53 kg Fran Watson MD Work Phone: [facility] 04-18-2023 16:23-0500 Heart rate 91 /min Fran Watson MD Work Phone: [facility] 04-18-2023 16:23-0500 Respiratory rate 16 /min Fran Watson MD Work Phone: [facility] 04-18-2023 16:23-0500 SaO2% (BldA) [Mass fraction] 96 % Fran Watson MD Work Phone: [facility] 06-18-2022 17:02-0400 Body height 182.9 cm Tara Connors ELECTRONIC WARFARE OPERATOR Work Phone: [facility] 06-18-2022 17:02-0400 Body mass index (BMI) [Ratio] 27.53 kg/m2 Tara Connors ELECTRONIC WARFARE OPERATOR Work Phone: [facility] 06-18-2022 17:02-0400 Body temperature 98.01 [degF] Tara Connors ELECTRONIC WARFARE OPERATOR Work Phone: [facility] 06-18-2022 17:02-0400 Body weight 92.08 kg Tara Connors ELECTRONIC WARFARE OPERATOR Work Phone: [facility] 06-18-2022 17:02-0400 Diastolic blood pressure 88 mm[Hg] Tara Connors ELECTRONIC WARFARE OPERATOR Work Phone: [facility] 06-18-2022 17:02-0400 Heart rate 95 /min Tara Connors ELECTRONIC WARFARE OPERATOR Work Phone: [facility] 06-18-2022 17:02-0400 Respiratory rate 16 /min Tara Connors ELECTRONIC WARFARE OPERATOR Work Phone: [facility] 06-18-2022 17:02-0400 SaO2% (BldA) [Mass fraction] 96 % Tara Connors ELECTRONIC WARFARE OPERATOR Work Phone: [facility] 06-18-2022 17:02-0400 Systolic blood pressure 125 mm[Hg] Tara Conn CN P Work Phone: [facility] 01-11-2021 08:12-0400 Body height 182.9 cm Fran Watson MD Work Phone: [facility] 01-11-2021 08:12-0400 Body mass index (BMI) [Ratio] 27.94 kg/m2 Fran Watson MD Work Phone: [facility] 01-11-2021 08:12-0400 Body temperature 98.29 [degF] Fran Watson MD Work Phone: [facility] 01-11-2021 08:12-0400 Body weight 93.44 kg Fran Watson MD Work Phone: [facility] 01-11-2021 08:12-0400 Diastolic blood pressure 83 mm[Hg] Fran Watson MD Work Phone: [facility] 01-11-2021 08:12-0400 Heart rate 96 /min Fran Watson MD Work Phone: [facility] 01-11-2021 08:12-0400 Respiratory rate 18 /min Fran Watson MD Work Phone: [facility] 01-11-2021 08:12-0400 SaO2% (BldA) [Mass fraction] 97 % Fran Watson MD Work Phone: [facility] 01-11-2021 08:12-0400 Systolic blood pressure 125 mm[Hg] Fran Watson MD Work Phone: [facility] 10-18-2019 15:02-0400 BP Diastolic 79 mm[Hg] [facility] 10-18-2019 15:02-0400 BP Systolic 127 mm[Hg] [facility] 10-18-2019 15:02-0400 Pulse (Heart Rate) 82 /min [facility] 10-18-2019 15:02-0400 Pulse Oximetry 98 % [facility] 10-18-2019 15:02-0400 Respiratory Rate 15 /min [facility] 10-18-2019 14:45-0400 Body Temperature 97.9 [degF] [facility] 10-18-2019 11:43-0400 BMI (Body Mass Index) 25.9 kg/m2 [facility] 10-18-2019 11:43-0400 Body weight 86.64 kg [facility] 10-18-2019 11:43-0400 Height 182.9 cm [facility] 09-23-2019 08:06-0400 BMI (Body Mass Index) 26.99 kg/m2 [facility] 09-23-2019 08:06-0400 Body Temperature 97.11 [degF] [facility] 09-23-2019 08:06-0400 Body weight 90.27 kg [facility] 09-23-2019 08:06-0400 BP Diastolic 84 mm[Hg] [facility] 09-23-2019 08:06-0400 BP Systolic 120 mm[Hg] [facility] 09-23-2019 08:06-0400 Height 182.9 cm [facility] 09-23-2019 08:06-0400 Pulse (Heart Rate) 74 /min [facility] 09-23-2019 08:06-0400 Pulse Oximetry 98 % [facility] 06-11-2019 09:00-0400 BMI (Body Mass Index) 26.04 kg/m2 [facility] 06-11-2019 09:00-0400 Body Temperature 97.9 [degF] [facility] 06-11-2019 09:00-0400 Body weight 87.09 kg [facility] 06-11-2019 09:00-0400 BP Diastolic 84 mm[Hg] [facility] 06-11-2019 09:00-0400 BP Systolic 120 mm[Hg] [facility] 06-11-2019 09:00-0400 Height 182.9 cm [facility] 06-11-2019 09:00-0400 Pulse (Heart Rate) 79 /min [facility] 06-11-2019 09:00-0400 Pulse Oximetry 99 % [facility] 06-10-2019 08:41-0400 BMI (Body Mass Index) 26.07 kg/m2 [facility] 06-10-2019 08:41-0400 Body Temperature 98.49 [degF] [facility] 06-10-2019 08:41-0400 Body weight 87.18 kg [facility] 06-10-2019 08:41-0400 BP Diastolic 81 mm[Hg] [facility] 06-10-2019 08:41-0400 BP Systolic 120 mm[Hg] [facility] 06-10-2019 08:41-0400 Height 182.9 cm [facility] 06-10-2019 08:41-0400 Pulse (Heart Rate) 91 /min [facility] 06-10-2019 08:41-0400 Pulse Oximetry 98 % [facility] 06-10-2019 08:41-0400 Respiratory Rate 18 /min [facility] 04-30-2019 16:30-0500 BMI (Body Mass Index) 25.93 kg/m2 [facility] 04-30-2019 16:30-0500 Body Temperature 102.6 [degF] [facility] 04-30-2019 16:30-0500 Body weight 86.73 kg [facility] 04-30-2019 16:30-0500 BP Diastolic 77 mm[Hg] [facility] 04-30-2019 16:30-0500 BP Systolic 133 mm[Hg] [facility] 04-30-2019 16:30-0500 Height 182.9 cm [facility] 04-30-2019 16:30-0500 Pulse (Heart Rate) 123 /min [facility] 04-30-2019 16:30-0500 Pulse Oximetry 96 % [facility] 04-30-2019 16:30-0500 Respiratory Rate 14 /min [facility] 03-21-2019 09:41-0500 BMI (Body Mass Index) 26.18 kg/m2 [facility] 03-21-2019 09:41-0500 Body Temperature 98.1 [degF] [facility] 03-21-2019 09:41-0500 Body weight 87.54 kg [facility] 03-21-2019 09:41-0500 BP Diastolic 87 mm[Hg] [facility] 03-21-2019 09:41-0500 BP Systolic 130 mm[Hg] [facility] 03-21-2019 09:41-0500 [facility] 182.9 cm [facility] 03-21-2019 09:41-0500 Pulse (Heart Rate) 73 /min [facility] 03-21-2019 09:41-0500 Pulse Oximetry 98 % [facility] 03-21-2019 09:41-0500 Respiratory Rate 16 /min [facility] 03-04-2019 16:55-0500 BP Diastolic 88 mm[Hg] [facility] 03-04-2019 16:55-0500 BP Systolic 131 mm[Hg] [facility] 03-04-2019 16:52-0500 BMI (Body Mass Index) 25.61 kg/m2 [facility] 03-04-2019 16:52-0500 Body Temperature 97 [degF] [facility] 03-04-2019 16:52-0500 Body weight 85.64 kg [facility] 03-04-2019 16:52-0500 Height 182.9 cm [facility] 03-04-2019 16:52-0500 Pulse (Heart Rate) 77 /min [facility] 03-04-2019 16:52-0500 Pulse Oximetry 96 % [facility] 03-04-2019 16:52-0500 Respiratory Rate 18 /min [facility] Encounters Encounter Date Encounter Type Care Provider Facility Start: 02-10-2025 End: 02-10-2025 ambulatory Dejon H Roof Facility:[facility] Start: 01-29-2025 ambulatory Dejon H Roof Facility:[facility] Start: 10-11-2024 End: 10-11-[address] Fran Watson MD Work Phone: -Radiology [facility] Start: 10-11-2024 End: 10-11-2024 Patient encounter procedure Louann BENITEZ -Radiology [facility] Work Phone: Start: 10-11-2024 End: 10-11-2024 ambulatory Louann BENITEZ Facility:[facility] Start: 03-23-2024 End: 03-23-2024 Office outpatient new 45 minutes Sarahy Pierce PA-C Work Phone: [facility] [place] Comment on above: Pneumonia of left lo wer lobe due to infectious organism (Primary Dx) Start: 03-23-2024 End: 03-27-2024 ambulatory SARAHY PIERCE [facility] Start: 05-22-2023 End: 05-[facility] Start: 05-22-2023 End: 05-22-2023 Office outpatient new 45 minutes Fran Watson MD Work Phone: [facility] Comment on above: Left varicocele (Haritha jen Dx); Left hydrocele; Chronic idiopathic constipation Start: 05-01-2023 End: 05-02-2023 Orders Only Fran Watson MD Work Phone: [facility] Comment on above: Left hydrocele (Prim benedicto Dx); Left varicocele Start: 04-18-2023 End: 04-18-2023 ambulatory FRAN WATSON [facility] Start: 04-18-2023 End: 04-18-2023 Office outpatient visit 25 minutes Fran Watson MD Work Phone: [facility] Comment on above: LLQ abdominal pain ( Primary Dx); Testicular pain, left; Screening for hyperlipidemia; Encounter for screening for HIV; Need for hepatitis C screening test Start: 06-18-2022 End: 06-18-2022 Office outpatient visit 25 minutes Tara Connors CNP Work Phone: [facility] [place] Comment on above: Acute cough (Primary Dx); Sinusitis, unspecified chronicity, unspecified location Start: 02-05-2021 Refill All Garza MA [facility] Start: 01-11-2021 End: 01-11-2021 ambulatory FRAN WATSON [facility] Start: 01-11-2021 End: 01-11-2021 Office outpatient visit 25 minutes Fran Watson MD Work Phone: [facility] Comment on above: Cough (Primary Dx); PND (post-nasal drip); Non-seasonal allergic rhinitis, unspecified trigger Start: 10-18-2019 End: 10-18-2019 Subsequent hospital visit by physician Vick Sun Work Phone: [facility] [place] [facility] Comment on above: Constipation, chroni c; LLQ abdominal pain Start: 09-23-2019 End: 09-23-2019 Office outpatient visit 15 minutes Vick Sun Work Phone: [facility] Comment on above: LLQ abdominal pain ( Primary Dx); Constipation, chronic; Screening for viral disease Start: 06-11-2019 End: 06-11-2019 Office outpatient new 30 minutes Fran Watson Work Phone: [facility] Comment on above: LLQ abdominal pain ( Primary Dx); Constipation, chronic Start: 06-10-2019 End: 06-10-2019 Subsequent hospital visit by physician Fran Watson Work Phone: [facility] Comment on above: LLQ abdominal pain; Constipation, chronic Start: 06-10-2019 End: 06-10-2019 Office outpatient visit 15 minutes Fran Watson Work Phone: [facility] Comment on above: LLQ abdominal pain ( Primary Dx); Constipation, chronic Start: 04-30-2019 End: 04-30-2019 Office outpatient visit 25 minutes Fran Watson Work Phone: [facility] Comment on above: Acute pharyngitis, u nspecified etiology (Primary Dx); Constipation, chronic; LLQ abdominal pain Start: 03-21-2019 End: 03-21-2019 Office outpatient visit 25 minutes Fran Watson Work Phone: [facility] Comment on above: Constipation, chroni c (Primary Dx); LLQ abdominal pain; Colitis, acute; Acute bilateral low back pain without sciatica Start: 03-19-2019 End: 03-19-2019 Subsequent hospital visit by physician Fran Watson Work Phone: [facility] CT Scan Comment on above: LLQ abdominal pain Start: 03-04-2019 End: 03-04-2019 Office outpatient visit 25 minutes Fran Watson Work Phone: [facility] Comment on above: LLQ abdominal pain ( Primary Dx); Acute bilateral low back pain without sciatica; Constipation, chronic Start: 10-24-2016 Ambulatory Fran Watson Faci lity:[place] Procedures Date Procedure Procedure Detail Performing Clinician Start: 10-11-2024 Plain x-ray of hand Dr. Fran Watson MD Work Phone: Start: 03-23-2024 Infectious agent dna /rna influenza 1st 2 types Sarahy Pierce PA-C Work Phone: Start: 03-23-2024 Sars-cov-2 detection by dna/rna Sarahy Pierce PA-C Work Phone: Start: 05-22-2023 MEASURE POST VOID RESIDUAL Gregorio James MD Work Phone: Start: 05-22-2023 Urnls dip stick/tabl et rgnt non-auto w/o micrscp Gregorio James MD Work Phone: Start: 06-18-2022 Radiologic exam ches t 2 views Tara Connors [facility] Work Phone: Start: 10-18-2019 Colonoscopy Vick Sun Work Phone: Start: 06-10-2019 Radiography of opebvn-qxhurc-fknmncv Fran Watson Work Phone: Start: 03-19-2019 Computed tomography of abdomen and pelvis with contrast Fran Watson Work Phone: Start: 03-04-2019 Adult depression scr eening assessment Fran Watson Plan of Treatment Date Care Activity Detail Author Start: 04-18-2024 COVID-19 Vaccine ( season) COVID-19 Vaccine ( season) [facility] Comment on above: Postponed from 12/02 (Patient Refused) Start: 04-18-2024 Tetanus vaccination Tetanus: Every 1 0yrs [facility] Comment on above: Postponed from 02/01 (Patient Refused) Start: 12-03-2023 COVID-19 Vaccine ( season) COVID-19 Vaccine ( season) [facility] Start: 12-03-2023 Influenza vaccination Influenza Vacc ine (#1) [facility] Start: 10-01-2023 Influenza vaccination Sequenti al Influenza Vaccine (#1) [facility] Comment on above: Postponed from 12/02 (Patient Refused) Start: 06-12-2023 End: 06-12-2023 Patient encounter procedure 06/12/2023 4:00 PM EDT Appointment [facility] CT Scan [address] [place] [phone] Fran Watson MD [address] [place] [address] [facility] [address] Scan Start: 06-01-2023 End: 06-01-2023 Patient encounter procedure 06/01/2023 4:40 PM EST Office Visit [facility] [address] [place] [phone] Fran Watson MD [address] [place] [address] [facility] Start: 05-11-2023 End: 05-11-2023 Patient encounter procedure 05/11/2023 4:00 PM EST Appointment [facility] CT Scan [address] [place] [address] Fran Watson MD [address] [place] [address] [facility] [address] Scan Start: 04-19-2023 End: 04-18-2024 CT Abdomen and Pelvis W contrast IV CT Abdomen Pelvis With Contrast Imaging Routine LLQ abdominal pain Testicular pain, left Expected: 04/19/2023, Expires: 04/18/2024 [facility] Comment on above: Expected: 04/19/2023 , Expires: 04/18/2024 Start: 04-19-2023 End: 04-18-2024 Hepatitis C antibody measurement Hepatitis C Antibody Lab Routine Need for hepatitis C screening test Expected: 04/19/2023, Expires: 04/18/2024 [facility] Comment on above: Expected: 04/19/2023 , Expires: 04/18/2024 Start: 04-19-2023 End: 04-18-2024 Human immunodeficiency virus antibody test HIV 1/2 Screen (4th Generation) Lab Routine Encounter for screening for HIV Expected: 04/19/2023, Expires: 04/18/2024 [facility] Comment on above: Expected: 04/19/2023 , Expires: 04/18/2024 Start: 04-19-2023 End: 04-18-2024 Lipid 1996 panel - Serum or Plasma Lipid Panel Lab Routine Screening for hyperlipidemia Expected: 04/19/2023, Expires: 04/18/2024 [facility] Comment on above: Expected: 04/19/2023 , Expires: 04/18/2024 Start: 04-19-2023 End: 04-18-2024 US Scrotum and testicle US Testicle With Color Flow Imaging Routine Testicular pain, left Expected: 04/19/2023, Expires: 04/18/2024 [facility] Comment on above: Expected: 04/19/2023 , Expires: 04/18/2024 Start: 04-18-2023 End: 04-18-2024 Complete blood count with white cell differential, manual CBC and Differential Lab Routine LLQ abdominal pain Testicular pain, left Expected: 04/18/2023, Expires: 04/18/2024 [facility] Work Phone: Comment on above: Expected: 04/18/2023 , Expires: 04/18/2024 Start: 04-18-2023 End: 04-18-2024 Comprehensive metabolic 2000 panel - Serum or Plasma Comprehensive Metabolic Panel Lab Routine LLQ abdominal pain Testicular pain, left Expected: 04/18/2023, Expires: 04/18/2024 [facility] Comment on above: Expected: 04/18/2023 , Expires: 04/18/2024 Start: 12-02-2021 Influenza vaccination Sequenti al Influenza Vaccine (#1) [facility] Start: 11-07-2021 COVID-19 Vaccine (4 - Booster for Pfizer series) COVID-19 Vaccine (4 - Booster for Pfizer series) [facility] Start: 09-30-2021 Influenza vaccination Sequenti al Influenza Vaccine (#1) [facility] Comment on above: Postponed from 12/02 (Patient Refused) Start: 03-19-2021 End: 03-19-2021 Patient encounter procedure 03/19/2021 Office Visit Primary Care Fran Watson MD [address] [place] [phone] [facility] Start: 03-04-2020 Depression screening using PHQ-9 (Patient Health Questionnaire 9) score [facility] Start: 12-03-2019 Influenza vaccinatio n given Sequential Influenza Vaccine (#1) [facility] Start: 10-18-2019 End: 10-18-2019 Hospital Encounter [facility] Comment on above: COLONOSCOPY Start: 10-15-2019 End: 10-15-2019 Office Visit 10/15/2019 Office Visit Lab Vick Sun MD [address] [place] [address] Medical [address] [place] [address] [phone] [facility] Start: 07-22-2019 End: 07-22-2019 Office Visit 07/22/2019 Office Visit Primary Care AmiFran brown MD [address] [place] [address] [phone] [facility] Start: 07-22-2019 End: 07-22-2019 Hospital Encounter [facility] Comment on above: COLONOSCOPY Start: 07-19-2019 End: 07-19-2019 Office Visit 07/19/2019 Office Visit General Surgery Vick Sun MD [address] [facility] Medical [address] [address] [phone] [facility] Start: 06-11-2019 End: 06-11-2019 Office Visit 06/11/2019 Office Visit General Surgery Fran Watson MD [address] [place] [phone] Vick Sun MD [address] [place] [address] [address] [phone] [facility] Start: 04-30-2019 End: 04-30-2019 Office Visit 04/30/2019 Office Visit Primary Care Fran Watson MD [address] [place] [address] [phone] [facility] Start: 03-21-2019 End: 03-21-2019 Office Visit 03/21/2019 Office Visit Primary Care Fran Watson MD [address] [place] [phone] [facility] Start: 03-05-2019 End: 03-04-2020 Complete blood count with white cell differential, manual CBC and Differential Lab Routine LLQ abdominal pain Expected: 03/05/2019, Expires: 03/04/2020 [facility] Comment on above: Expected: 03/05/2019 , Expires: 03/04/2020 Start: 03-05-2019 End: 03-04-2020 Comprehensive metabolic 2000 panel Comprehensive Metabolic Panel Lab Routine LLQ abdominal pain Expected: 03/05/2019, Expires: 03/04/2020 [facility] Comment on above: Expected: 03/05/2019 , Expires: 03/04/2020 Start: 03-05-2019 End: 03-04-2020 Computed tomography of abdomen and pelvis with contrast CT Abdomen Pelvis With Contrast Imaging Routine LLQ abdominal pain Expected: 03/05/2019, Expires: 03/04/2020 [facility] Comment on above: Expected: 03/05/2019 , Expires: 03/04/2020 Start: 03-05-2019 End: 03-04-2020 Lipase [Catalytic activity/Vol] Lipase Lab Routine LLQ abdominal pain Expected: 03/05/2019, Expires: 03/04/2020 [facility] Comment on above: Expected: 03/05/2019 , Expires: 03/04/2020 Start: 2001 Hepatitis C antibody , confirmatory test Hepatitis C Screening [facility] Start: 2001 Hepatitis C screening Hepatitis C Sc reening [facility] Start: 1998 HIV screening HIV Screening [facility] Start: 1986 History and physical examination, annual for health maintenance Wellness Visit [facility] Start: 1983 Tetanus vaccination [facility] End: 09-22-2020 COVID-19, Molecular COVID-19, Molecular Microbiology Routine Screening for viral disease 1 Occurrences starting 09/23/2019 until 09/22/2020 [facility] Comment on above: 1 Occurrences starti ng 09/23/2019 until 09/22/2020 Immunizations Immunization Date Immunization Notes Care Provider Alphonse doty 03-04-2019 influenza virus vacc ine, unspecified formulation Sarahy Pierce PA-C Work Phone: [facility] Payers Date Payer Category Payer Self-pay 2018 [facility] Shield (Indemnity or Managed Care) - Out of State BCBS OUT OF STATE [facility] [place] [id number] 2018 Unknown [place]THEM BCBS OUT OF STATE [facility] [place] xxxxxxxxxxxxxxx 2018-Present xxxxxxxxxxxxxxx [id number] 2018 Unknown ANTHEM BCBS OUT OF STATE [facility] [place] [id number] 2018-Present [phone] [address] [place] [address] [id number] 2018 Unknown ANTHEM BCBS OUT OF STATE [facility] [place] [id number] 2018-Present [phone] [address] [place] [address] [id number] 2018 Unknown [id number] 1985 Unknown [id number] 00 1983 Unknown [id number] 03 1983 Unknown [id number] 03 1983 Unknown [id number] 03 1983 Unknown [id number] 03 1983 Unknown [id number] 03 Unknown [id number] 62 Unknown [id number] 62 Unknown [id number] 62 Social History Date Type Detail Facility Start: 03-04-2019 End: 01-31-2024 Tobacco smoking status NHIS Never smoker [facility] Start: 03-04-2019 End: 03-23-2024 Alcohol intake Current drinker of alcohol (finding) [facility] Start: 03-04-2019 End: 06-10-2019 History SDOH Alcohol Frequency 3 [facility] Start: 03-04-2019 End: 10-18-2019 History SDOH Alcohol Std Drinks 99 [facility] Start: 03-04-2019 End: 06-10-2019 History SDOH Food Worry 1 [facility] Start: 03-04-2019 Alcohol Comment OCCASSIONAL [facility] Start: 1985 Sex Assigned At Not on file [facility] Start: 06-08-2022 End: 06-18-2022 Exposure to SARS-CoV-2 (event) Not sure [facility] Start: 03-04-2019 End: 06-18-2022 Tobacco use and exposure Smokeless tobacco non-user [facility] Start: 03-04-2019 End: 03-23-2024 History of Social function [facility] Start: 03-04-2019 End: 03-23-2024 Social connection and isolation panel [facility] Frequency of Communication with Friends and Family Not on file [facility] How often to you hav e a drink containing alcohol? 2-4 times a month [facility] Start: 03-18-2019 Gender identity Identifies as male gender (finding) [facility] Start: 03-18-2019 Sexual orientation Heterosexual (finding) [facility] Start: 1985 Sex Assigned At Male [facility] Clinical Notes 01-11-2021 to 10-11-2024 Sarahy Pierce PA-C - 03/23/2024 9:39 AM Gregorio Dumont MD - 05/22/2023 1:00 PM Fran Torres MD - 04/18/2023 5:01 PM ESTPatient InstructionsAttachments Note Date & Type Note Facility 10-11-2024 Radiology Diagnostic study note [facility] Imaging Services [address] [place] [address] Hand Min 3 Views MR#: [id number] Acct: [id number] Name: BART HOOKER Rep #: [id number] : 1985 M 39 From: Ad Calloway MD PCP: Dr. Fran Watson MD Status: RE G CLI Study:Hand Min 3 Views Date of Exam: 02/25 Exam# [id number] Ordering Dr: Louann Miller PROCEDURE: HAND MIN 3 VIEWS 10/11/2024 REASON FOR EXAM: SPRAIN OF METACARPOPHALANGEAL JOINT OF RIGHT LITTLE FINGER, INITI TECHNIQUE: HAND MIN 3 VIEWS COMPARISON: None FINDINGS: Bones: No fracture seen. Joints: Normal alignment. Soft tissues: Soft tissues are unremarkable. Other: RAD/Hand Min 3 Views IMPRESSION: NEGATIVE HAND SERIES Reading Location: [place] [address] CC: Dr. Fran Watson MD; EMMANUEL Son ~ [employer]: Signed [facility] 03-23-2024 Note Patient Name: [facility] Location: Bart Hooker [address] [place] [phone] Date Of : Date Of Visit: 1985 03/23/2024 MRN# Provider: [id number] Sarahy Pierce PA-C Chief Complaint Patient presents with Illness Fever x's 2 days up to 103F, 98.3F today Bad KUMAR, not a lot of relief from ibuprofen, productive cough, brown mucus Assessment & Plan 1. Pneumonia of left lower lobe due to infectious organism XR Chest AP/PA and LAT POC Influenza A/B, Molecular COVID-19, Molecular azithromycin (Zithromax Z-Erick) 250 MG tablet ehjutvyihgdxyrr-CN-[id number] 60-15-400 mg Tab No follow-ups on file. Medical Decision Making Considered Covid, influenza URI, bronchitis, sinusitis, pneumonia, COPD, asthma. Patient will be treated for pneumonia with Zithromax based on clinical presentation and current community spread of mycoplasma pneumonia. There are no signs to warrant an emergent referral on this date and time of exam. Recommended OTC Tylenol and/or ibuprofen prn fever/pain. Recommended that they should return to urgent care, make an appointment with their family physician, or go to the emergency room if symptoms persist or get acutely worse. Imaging Documentation I have personally reviewed AP and lateral views of the chest. My impression is left lower lobe pneumonia Additional Clinical Comments Discussed rbsp-vxf-aremild medications for symptomatic management. Discussed signs and symptoms with patient (and guardian) that would warrant further medical evaluation. Recommended that they should return to urgent care, make an appointment with their family physician, or go to the emergency room if symptoms persist or get acutely worse. Subjective 39 y.o. male presents with Illness (Fever x's 2 days up to 103F, 98.3F today/Bad KUMAR, not a lot of relief from ibuprofen, productive cough, brown mucus ) Patient is a 39-year-old male who presents with fevers up to 103 degrees F and headaches in the back of his head for the past 3 days. Patient also reports a productive cough with brown sputum. He is a non-smoker. Associated symptoms include fatigue, body aches. He denies any nasal congestion, runny nose, sore throat, ear pain, nausea/vomiting or diarrhea. Patient denies any ill contacts. Self treatment with ibuprofen. Review Of Systems Review of Systems Constitutional: Positive for fatigue and fever. Negative for chills and diaphoresis. HENT: Negative for congestion, ear pain, rhinorrhea, sinus pressure and sore throat. Respiratory: Positive for cough. Negative for shortness of breath and wheezing. Gastrointestinal: Negative for abdominal pain, diarrhea, nausea and vomiting. Musculoskeletal: Positive for arthralgias and myalgias. Skin: Negative for rash. Neurological: Positive for headaches. Medical History Past Medical History: Diagnosis Date Acute bilateral low back pain without sciatica 03/04/2019 Constipation, chronic LLQ abdominal pain PVC (premature ventricular contraction) Past Surgical History: Procedure Laterality Date COLONOSCOPY N/A 10/18/2019 Procedure: COLONOSCOPY; Surgeon: Vick Sun MD; Location: [facility]; Service: General Surgery WISDOM TOOTH EXTRACTION Patient Active Problem List Diagnosis Constipation, chronic Symptomatic PVCs Non-seasonal allergic rhinitis PND (post-nasal drip) Testicular pain, left LLQ abdominal pain Left hydrocele Left varicocele Social History Social History Tobacco Use Smoking status: Never Smokeless tobacco: Never Vaping Use Vaping status: Never Used Substance Use Topics Alcohol use: Yes Comment: OCCASSIONAL Drug use: Never Family History Family History Problem Relation Age of Onset Hypertension Father Bipolar disorder Sister Diabetes Maternal Grandmother Heart disease Maternal Grandmother Stroke Maternal Grandfather Dementia Paternal Grandmother Objective Physical Exam BP 106/75 Pulse 98 Temp 99.1 degrees F (37.3 degrees C) (Tympanic) Resp 16 Ht 6' Wt 79.4 kg (175 lb) SpO2 96% BMI 23.73 kg/m Vision/Hearing Exam:No results found. Physical Exam Vitals and nursing note reviewed. Constitutional: General: He is not in acute distress. Appearance: He is ill-appearing. He is not toxic-appearing or diaphoretic. HENT: Head: Normocephalic. Right Ear: Tympanic membrane and ear canal normal. Left Ear: Tympanic membrane and ear canal normal. Mouth/Throat: Mouth: Mucous membranes are moist. Pharynx: Posterior oropharyngeal erythema present. No oropharyngeal exudate. Eyes: Conjunctiva/sclera: Conjunctivae normal. Cardiovascular: Rate and Rhythm: Normal rate and regular rhythm. Heart sounds: No murmur heard. No friction rub. No gallop. Pulmonary: Effort: Pulmonary effort is normal. No respiratory distress. Breath sounds: Rhonchi and rales present. No wheezing. Comments: Adventitious lung soun (more content not included)... [facility] 03-23-2024 History of Present illness Narrative Images from the original note were not included. Patient Name: [facility] Location: Bart Hooker [address] [place] [id number] Date Of : Date Of Visit: 1985 03/23/2024 MRN# Provider: [id number] ISACC JamesC Chief Complaint Patient presents with Illness Fever x's 2 days up to 103F, 98.3F today Bad KUMAR, not a lot of relief from ibuprofen, productive cough, brown mucus Assessment & Plan 1. Pneumonia of left lower lobe due to infectious organism XR Chest AP/PA and LAT POC Influenza A/B, Molecular COVID-19, Molecular azithromycin (Zithromax Z-Ercik) 250 MG tablet [id number]-[id number] 60-15-400 mg Tab No follow-ups on file. Medical Decision Making Considered Covid, influenza URI, bronchitis, sinusitis, pneumonia, COPD, asthma. Patient will be treated for pneumonia with Zithromax based on clinical presentation and current community spread of mycoplasma pneumonia. There are no signs to warrant an emergent referral on this date and time of exam. Recommended OTC Tylenol and/or ibuprofen prn fever/pain. Recommended that they should return to urgent care, make an appointment with their family physician, or go to the emergency room if symptoms persist or get acutely worse. Imaging Documentation I have personally reviewed AP and lateral views of the chest. My impression is left lower lobe pneumonia Additional Clinical Comments Discussed nlhc-gov-hbsbilq medications for symptomatic management. Discussed signs and symptoms with patient (and guardian) that would warrant further medical evaluation. Recommended that they should return to urgent care, make an appointment with their family physician, or go to the emergency room if symptoms persist or get acutely worse. Subjective 39 y.o. male presents with Illness (Fever x's 2 days up to 103F, 98.3F today/Bad KUMAR, not a lot of relief from ibuprofen, productive cough, brown mucus ) Patient is a 39-year-old male who presents with fevers up to 103 F and headaches in the back of his head for the past 3 days. Patient also reports a productive cough with brown sputum. He is a non-smoker. Associated symptoms include fatigue, body aches. He denies any nasal congestion, runny nose, sore throat, ear pain, nausea/vomiting or diarrhea. Patient denies any ill contacts. Self treatment with ibuprofen. Review Of Systems Review of Systems Constitutional: Positive for fatigue and fever. Negative for chills and diaphoresis. HENT: Negative for congestion, ear pain, rhinorrhea, sinus pressure and sore throat. Respiratory: Positive for cough. Negative for shortness of breath and wheezing. Gastrointestinal: Negative for abdominal pain, diarrhea, nausea and vomiting. Musculoskeletal: Positive for arthralgias and myalgias. Skin: Negative for rash. Neurological: Positive for headaches. Medical History Past Medical History: Diagnosis Date Acute bilateral low back pain without sciatica 03/04/2019 Constipation, chronic LLQ abdominal pain PVC (premature ventricular contraction) Past Surgical History: Procedure Laterality Date COLONOSCOPY N/A 10/18/2019 Procedure: COLONOSCOPY; Surgeon: Vick Sun MD; Location: [facility]; Service: General Surgery WISDOM TOOTH EXTRACTION Patient Active Problem List Diagnosis Constipation, chronic Symptomatic PVCs Non-seasonal allergic rhinitis PND (post-nasal drip) Testicular pain, left LLQ abdominal pain Left hydrocele Left varicocele Social History Social History Tobacco Use Smoking status: Never Smokeless tobacco: Never Vaping Use Vaping status: Never Used Substance Use Topics Alcohol use: Yes Comment: OCCASSIONAL Drug use: Never Family History Family History Problem Relation Age of Onset Hypertension Father Bipolar disorder Sister Diabetes Maternal Grandmother Heart disease Maternal Grandmother Stroke Maternal Grandfather Dementia Paternal Grandmother Objective Physical Exam BP 106/75 Pulse 98 Temp 99.1 F (37.3 C) (Tympanic) Resp 16 Ht 6' Wt 79.4 kg (175 lb) SpO2 96% BMI 23.73 kg/m Vision/Hearing Exam:No results found. Physical Exam Vitals and nursing note reviewed. Constitutional: General: He is not in acute distress. Appearance: He is ill-appearing. He is not toxic-appearing or diaphoretic. HENT: Head: Normocephalic. Right Ear: Tympanic membrane and ear canal normal. Left Ear: Tympanic membrane and ear canal normal. Mouth/Throat: Mouth: Mucous membranes are moist. Pharynx: Posterior oropharyngeal erythema present. No oropharyngeal exudate. Eyes: Conjunctiva/sclera: Conjunctivae normal. Cardiovascular: Rate and Rhythm: Normal rate and regular rhythm. Heart sounds: No murmur heard. No friction rub. No gallop. Pulmonary: Effort: Pulmonary effort is normal. No respiratory distress. Breath sounds: Rhonchi and rales present. No wheezing. Comments: Adventitious lung sounds on the left side Musculoskeletal: General: Normal range of motion. Cervical back: Neck supple. Lymphadenopathy: Cervical: Cervical adenopathy (Left anterior) present. Skin: General: Skin is warm and dry. Neurological: General: No focal deficit present. Mental Status: He is alert. Procedure Notes Procedures Results Recent Results (from the past week) POC Influenza A/B, Molecular Collection Time: 03/23/24 9:43 AM Result Value Ref Range Influenza A, Molecular Negative Negative Influenza B, Molecular Negative Negative COVID-19, Molecular Collection Time: 03/23/24 9:43 AM Specimen: Nasopharyngeal; Swab Result Value Ref Range SARS-CoV-2 Not Detected Not Detected No orders to display Orders Placed This Visit Orders Placed This Encounter Procedures XR Chest AP/PA and LAT POC Influenza A/B, Molecular COVID-19, Molecular Medication List At End Of Visit Current Outpatient Medications Medication Sig Dispense Refill azithromycin (Zithromax Z-Erick) 250 MG tablet Take 2 (two) tablets (500 mg total) by mouth daily for 1 day, THEN 1 (one) tablet (250 mg total) daily for 4 days. 6 tablet 0 metoprolol succinate (TOPROL-XL) 25 MG 24 hr tablet Take 1 (one) tablet (25 mg total) by mouth daily . (Patient not taking: Reported on 03/23/2024 .) [id number] mg Tab Take 1 (one) tablet by mouth every 6 (six) hours as needed . 20 tablet 0 No current facility-administered medications for this visit. There are no Patient Instructions on file for this visit. documented in this encounter [facility] 05-22-2023 History of Present illness Narrative [facility] Patient / Consultation Patient Name: Bart Hooker Admit Date: MR #: [id number] : 1985 Physicians: Fran Watson MD (Family); Fran Watson* (Referring) Chief Complaint/Reason for Visit: left varicocele History of Present Illness: 38 y.o. male referred for left varicocele. Patient saw PCP last month & reported symptoms of intermittent LLQ abdominal pain & left testicular pain. PCP ordered scrotal US with findings of small left hydrocele & left varicocele, for which he was referred to urology. Current symptoms: intermittent, mild discomfort in the region of the left lower quadrant, left groin, left hemiscrotum & left testicle Onset: at least 3-4 years Severity: 3-4 / 10; can be worse with incidental mild traumas from his dogs jumping up on him, etc Associated symptoms: nothing he has been able to identify & attribute to this issue; no flank pain, no nausea, no dysuria, no gross hematuria, Exacerbating / alleviated factors: none identified; sometimes when the abdominal pain is more severe he attributes it to gas & this resolves with repositioning. Treatments: none; no OTCs or ice or PT Marital status: yes Children: 2 Interest in fertility: no; his had sterilization procedure (tubal + ablation). Relevant PMHx / PSHx: Abdominopelvic surgeries: No Hx UTI / STI: No Hx stones: No Hx prior or recent / abdominopelvic trauma: No Prior urology evaluation: No LUTS: Yes, but minimal IPSS 2 / QoL 0 Meds: No Interest in intervention: N/A GH: No Incontinence: No ELSIE 22 Duration: mild symptoms over the last year, not particularly bothersome Meds: No Bother: No Pain / curvature: No Record Review: - I reviewed patient's records from PCP Fran Watson MD. History: Past Medical History: Diagnosis Date Acute bilateral low back pain without sciatica 03/04/2019 Constipation, chronic LLQ abdominal pain PVC (premature ventricular contraction) Past Surgical History: Procedure Laterality Date COLONOSCOPY N/A 10/18/2019 Procedure: COLONOSCOPY; Surgeon: Vick Sun MD; Location: [facility] [place] [facility]; Service: General Surgery WISDOM TOOTH EXTRACTION Family History Problem Relation Age of Onset Hypertension Father Bipolar disorder Sister Diabetes Maternal Grandmother Heart disease Maternal Grandmother Stroke Maternal Grandfather Dementia Paternal Grandmother Social History Socioeconomic History Marital status: Tobacco Use Smoking status: Never Smokeless tobacco: Never Vaping Use Vaping Use: Never used Substance and Sexual Activity Alcohol use: Yes Comment: OCCASSIONAL Drug use: Never Sexual activity: Yes Partners: Female control/protection: Surgical Social Determinants of Health Food Insecurity: No Food Insecurity (03/04/2019) Hunger Vital Sign Worried About Running Out of Food in the Last Year: Never true Ran Out of Food in the Last Year: Never true Social Connections: Unknown (03/04/2019) Social Connection and Isolation Panel [NHANES] Frequency of Social Gatherings with Friends and Family: Twice a week Allergies: I have reviewed the patient's allergies. Penicillins Home Medications: Outpatient Medications as of 05/22/2023 Medication Sig metoprolol succinate (TOPROL-XL) 25 MG 24 hr tablet Take 1 (one) tablet (25 mg total) by mouth daily . Review of Systems: The following system(s) were reviewed and pertinent findings noted: Review of Systems Constitutional: Negative for activity change, chills, fever and unexpected weight change. Gastrointestinal: Negative for abdominal pain, diarrhea, nausea and vomiting. Objective: Vital Signs: BP (!) 131/92 Pulse 99 SpO2 98% Physical Exam Vitals reviewed. Constitutional: General: He is not in acute distress. Appearance: He is not diaphoretic. Pulmonary: Effort: Pulmonary effort is normal. No respiratory distress. Abdominal: General: There is no distension. Palpations: Abdomen is soft. Tenderness: There is no abdominal tenderness. Genitourinary: Comments: Testicles descended bilaterally & without masses; minimal left epididymal tenderness; no scrotal erythema or edema; no obvious hydrocele; fullness of the left spermatic cord which increased with valsalva consistent with varicocele; no obvious hernia Neurological: General: No focal deficit present. Mental Status: He is alert and oriented to person, place, and time. Psychiatric: Mood and Affect: Mood normal. Behavior: Behavior normal. Laboratory Results Reviewed: No results found for: PSASCRN, PSA, PSAFREE No results found for: TESTOSTERONE, E2 Lab Results Component Value Date WBC 5.07 03/05/2019 HGB 15.6 03/05/2019 HCT 47.8 03/05/2019 MCV 87.5 03/05/2019 PLT 265 03/05/2019 Lab Results Component Value Date GLUCOSE 86 03/05/2019 CALCIUM 8.9 03/05/2019 NA 141 03/05/2019 K 4.1 03/05/2019 CL 108 03/05/2019 BUN 12 03/05/2019 CREATININE 1.09 03/05/2019 Recent Results (from the past 24 hour(s)) POC Urinalysis Dipstick Collection Time: 05/22/23 1:11 PM Result Value Ref Range Spec Grav, UA 1.015 1.005 - 1.025 pH, UA 7.0 5.0 - 7.0 Protein, UA Negative Negative mg/dL Glucose, UA Negative Normal, Negative mg/dL Ketones, UA Negative Negative mg/dL Bilirubin, UA Negative Negative Urobilinogen, UA 0.2 <2.0, 0.2, Normal, Negative, 1.0, 2.0, <1.0 mg/dL Blood, UA Negative Negative Nitrite, UA Negative Negative Leukocyte Esterase, UA Negative Negative Measure post void residual Collection Time: 05/22/23 1:14 PM Result Value Ref Range Measure Post Void Residual 0 Imaging Reviewed: Images & report independently reviewed; images independently interpreted by me: Left varicocele; adequate bilateral testicular blood flow with questionable hyperemia / inflammation of the left testicle & epididymis compared to the right; minimal / trace left varicocele; no obvious masses US Testicle With Color Flow Result Date: 05/01/2023 EXAMINATION: US TESTICLE WITH COLOR FLOW HISTORY: ORDERING SYSTEM PROVIDED HISTORY: Testicular pain, left, TECHNOLOGIST PROVIDED HISTORY: Illness/Other Reason for exam: Left testicular pain intermittent for 2yrs Cancer History: unknown Surgery, RadiationHistory: unknown Encounter Type: Initial Additional signs and symptoms: no ORDERING SYSTEM PROVIDED DIAGNOSIS CODES: N50.812 Testicular pain, left COMPARISON: None TECHNIQUE: Grayscale and color imaging was performed FINDINGS: Scanning of the right scrotal sac demonstrates the right testicle to measure 3.9 x 2.7 x 2.3 cm. There is a homogeneous echotexture with no discrete solid or cystic masses. The epididymis appears normal. Scanning of the left scrotal sac demonstrates the left testicle to measure 3.9 x 2.1 x 3.2 cm. There is a homogeneous echotexture with no discrete solid or cystic masses. Color flow is noted. There is a small left hydrocele. Within the left scrotal sac there are several serpiginous sonolucencies with color flow with Valsalva consistent with a left varicocele. 1. Normal-appearing testicles with color flow. 2. Small left hydrocele. 3. Left varicocele Workstation ID: [id number] Assessment: Bart Hooker is a 38 y.o. y/o male Diagnoses and all orders for this visit: Left varicocele - POC Urinalysis Dipstick - Measure post void residual - Ambulatory referral to Urology Left hydrocele - Ambulatory referral to Urology Chronic idiopathic constipation - UA today shows neg RBC, neg LE, neg nitrite. No further workup today. - PVR today by bladder scan: 0 cc - Discussed common etiologies of scrotal / testicular swelling including infection, inflammation, trauma, hydrocele, varicocele, spermatocele / epididymal cyst, scrotal cyst or mass, testicular mass both benign or malignant, spermatic cord or epididymal mass, hernia, peripheral edema / CHF / cirrhosis / nephrotic syndromes, among others. - Discussed diagnostic workup beginning with scrotal / testicular ultrasound & urinalysis / PVR / assessment of voiding function. - Discussed additional testing to rule out occult UTI / prostatitis, include PCR testing of urine and/or semen. - Discussed management options for symptoms including scrotal support / elevation & intermittent ice; discussed risks/benefits/alternatives to definitive management involving surgical excision of hydrocele. Discussed more conservative procedural intervention with hydrocele aspiration under local anesthesia & that this is typically less effective due to low success / high recurrence rates but can be an appropriate option in certain scenarios when more definitive operative intervention is not preferred due to additional risks and/or patient preference. - Discussed possible etiologies of scrotal / testicular pain including infection, inflammation, trauma, hydrocele, varicocele, spermatocele / epididymal cyst, scrotal cyst or mass, testicular mass both benign or malignant, spermatic cord or epididymal mass, hernia, urolithiasis, constipation, chronic pain of unknown etiology, among others. - Discussed diagnostic workup beginning with scrotal / testicular ultrasound & urinalysis / PVR / assessment of voiding function. - Discussed additional testing to rule out occult UTI / prostatitis, include PCR testing of urine and/or semen. - Discussed possible treatment options pending workup if no definitive causative etiology can be determined, including trial of NSAIDs, scrotal support / elevation / ice, trial of antibiotics, spermatic cord injection / nerve block, referral to pain management, operative interventions for pain in the absence of anatomical abnormality including spermatic cord denervation & orchiectomy. - Discussed that testicular / scrotal pain in absence of identifiable pathology is relatively common, can be self-limiting or progressive / chronic in nature & can unfortunately become worse with any of the above interventions. - Discussed the anatomical relationship & importance of bowel regularity & health as it pertains to bladder health & normal voiding function. - Discussed possible etiologies of constipation & explained that most patients have multiple contributing factors including insufficient fluid intake, insufficient dietary fiber intake, medication side effects, acquired poor bowel habits, neurological conditions, stress / anxiety / depression, immobility, diabetes, hypothyroidism, altered anatomy / prior bowel or pelvic surgery, among others. - Discussed the recommendations for 25-30g of dietary fiber daily & gave examples of fiber-rich foods including fruits, vegetables, lentils, legumes, nuts, oats, cereals. - Discussed the recommendations for daily fluid intake of at least 1.5-2 liters daily. - Discussed the risks/benefits/alternatives to multiple over the counter & prescription medication options including bulk-forming laxatives (psyllium, methylcellulose, etc), surfactants (docusate), osmotics (polyethylene glycol, lactulose, milk of magnesia, magnesium citrate, magnesium sulfate), stimulant laxatives (bisacodyl, senna), suppositories. Plan: - Observation of left varicocele; minimally symptomatic with intermittent discomfort which may or may not be related to varicocele. - Regular testicular self exams. - No indication for abdominal imaging at this time from my standpoint. - Recommend Miralax for constipation; can be OTC> - Scrotal support, elevation, ice, OTC analgesics, tight fitting underwear. - F/u ~ PRN to reassess if issues / concerns / worsening or new symptoms. - Patient expressed understanding of the above discussion. All questions answered. Assessment Detail: The total time spent for this visit was 50 minutes. Greater than 50% of the time was spent in counseling and coordination of care regarding varicocele, hydrocele, testicular pain, constipation, followup plan. Gregorio James MD [facility] - Urology 1:00 PM 05/22/23 documented in this encounter [facility] 04-18-2023 History of Present illness Narrative Images from the original note were not included. Bart Daphne Hooker 1985 [id number] HPI: Patient was here today complaining of left lower quadrant abdominal pain, left testicular pain. Patient stated that he has been experiencing mild to moderate intermittent aching pain in the left lower quadrant of the abdomen for the past several months associated with some sensitivity in the area with palpation. He also has been experiencing intermittent brief episodic symptoms of testicular pain and tenderness in the left scrotum for the past couple of months. Denies any known trauma or injury that may have caused his symptoms. States that he experiences left lower quadrant abdominal pain sometimes when he has pain in the left scrotum. He still has some problem with his bowels but has been moving his bowels on a regular basis at least every other day. Denies any blood in the stool. Patient Active Problem List Diagnosis Constipation, chronic Symptomatic PVCs Non-seasonal allergic rhinitis PND (post-nasal drip) Testicular pain, left LLQ abdominal pain Past Medical History: Diagnosis Date Acute bilateral low back pain without sciatica 03/04/2019 Constipation, chronic LLQ abdominal pain PVC (premature ventricular contraction) Past Surgical History: Procedure Laterality Date COLONOSCOPY N/A 10/18/2019 Procedure: COLONOSCOPY; Surgeon: Vick Sun MD; Location: [facility] [place] [facility]; Service: General Surgery WISDOM TOOTH EXTRACTION Social History Socioeconomic History Marital status: Tobacco Use Smoking status: Never Smokeless tobacco: Never Vaping Use Vaping Use: Never used Substance and Sexual Activity Alcohol use: Yes Comment: OCCASSIONAL Drug use: Never Sexual activity: Yes Partners: Female control/protection: Surgical Social Determinants of Health Food Insecurity: No Food Insecurity (03/04/2019) Hunger Vital Sign Worried About Running Out of Food in the Last Year: Never true Ran Out of Food in the Last Year: Never true Social Connections: Unknown (03/04/2019) Social Connection and Isolation Panel [NHANES] Frequency of Social Gatherings with Friends and Family: Twice a week Family History Problem Relation Age of Onset Hypertension Father Bipolar disorder Sister Diabetes Maternal Grandmother Heart disease Maternal Grandmother Stroke Maternal Grandfather Dementia Paternal Grandmother Review of Systems Constitutional: Negative for chills, diaphoresis, fatigue, fever and unexpected weight change. Respiratory: Negative for cough, shortness of breath and wheezing. Cardiovascular: Negative for chest pain, palpitations and leg swelling. Gastrointestinal: Negative for abdominal distention, blood in stool, diarrhea, nausea and vomiting. Genitourinary: Negative for dysuria, hematuria, penile discharge and scrotal swelling. Neurological: Negative for dizziness, light-headedness and headaches. Physical Exam: Vitals: 04/18/23 1623 04/18/23 1625 04/18/23 1655 BP: (!) 145/85 (!) 149/82 (!) 124/90 BP Location: Right arm Right arm Right arm Patient Position: Sitting Sitting Sitting BP Cuff Size: Adult Adult Adult Pulse: 91 Resp: 16 Temp: 98.2 F (36.8 C) TempSrc: Infrared SpO2: 96% Weight: 96.5 kg (212 lb 12.8 oz) Height: 6' Physical Exam Constitutional: General: He is not in acute distress. Appearance: He is well-developed. Cardiovascular: Rate and Rhythm: Normal rate and regular rhythm. Heart sounds: Normal heart sounds. No murmur heard. Pulmonary: Effort: Pulmonary effort is normal. No respiratory distress. Breath sounds: Normal breath sounds. No wheezing or rales. Abdominal: General: Abdomen is flat. Bowel sounds are normal. There is no distension. Palpations: Abdomen is soft. Tenderness: There is abdominal tenderness. There is no guarding or rebound. Comments: Mild tenderness in the left lower quadrant of the abdomen Genitourinary: Comments: No scrotal swelling or scrotal tenderness, no obvious inguinal hernias Assessment & Plan: 1. LLQ abdominal pain CBC and Differential Comprehensive Metabolic Panel CT Abdomen Pelvis With Contrast 2. Testicular pain, left CBC and Differential Comprehensive Metabolic Panel CT Abdomen Pelvis With Contrast US Testicle With Color Flow 3. Screening for hyperlipidemia Lipid Panel 4. Encounter for screening for HIV HIV 1/2 Screen (4th Generation) 5. Need for hepatitis C screening test Hepatitis C Antibody Left lower quadrant abdominal pain: Possible constipation with stool accumulation but will need to rule out other causes like chronic diverticulitis. I have reviewed his last colonoscopy results and also CT scan results from 2019. Discussed various possible etiology for his symptoms and ordered a repeat CT of the abdomen and pelvis. Left testicular pain: Patient seems to have intermittent symptoms of left testicular pain and tenderness. Discussed various possible etiology for his symptoms including chronic epididymitis, varicocele etc. Ordered a testicular ultrasound. Also ordered basic lab tests. Discussed HIV and hepatitis C screening: Patient was agreeable for this and hence labs were ordered today. Ordered a screening lipid panel as well. Return in about 6 weeks (around 05/30/2023), or if symptoms worsen or fail to improve. Patient education & instructions given for: Advised patient about possible common adverse-effects from the medications, but also recommended to review the medication information package inserts for complete list of adverse effects/contraindications, drug interactions etc., before starting any new medication. Patient was also advised to immediately discontinue the medication and notify us or go to a nearby ER if experiencing any severe adverse affects from the medications. All the addressed problems were discussed with the patient and advice given to call with any concerns or return to the office or go to a nearby ER if the symptoms do not improve or worsen or new symptoms develop. If any referrals were placed or tests ordered at today's visit, the patient was instructed to call the office if they are not notified about the scheduling of referral or tests, within 2 weeks of today's visit. Health maintenance/preventive screening reviewed / ordered: Offered age-appropriate preventive services and screening. Please note: Portions of this chart may have been created with Audience voice recognition software. Occasional wrong-word or sound-like substitutions may have occurred due to inherent limitations of the voice recognition software. Please read the chart carefully and recognize, using context, where the substitutions have occurred. documented in this encounter [facility] 06-18-2022 Instructions Tara Connors CNP - 06/18/2022 5:22 PM EDT Thank you for choosing [facility] for your healthcare needs today. I sent in an antibiotic that covers both sinusitis/bronchitis and pneumonia. I will call with the final radiology report with any abnormalities. Take prednisone early with food to prevent insomnia and indigestion. Do not chew the cough pills. Follow up persistent/worsening symptoms of concern as needed. The following attachments cannot be sent through Care Everywhere.Cough (Croatian)Sinusitis: Acute (Croatian)documented in this encounter [facility] 06-18-2022 History of Present illness Narrative Images from the original note were not included. Patient Name: [facility] Location: Bart Hooker [address] [place] [id number] Date Of : Date Of Visit: 1985 06/18/2022 MRN# Provider: [id number] Tara Connors CNP Chief Complaint Patient presents with Sinusitis Sinus and drainage x3 weeks. Cough. Will be traveling out of the country and would like checked for possible antibiotic treatment. Has not tried OTC medications, Assessment & Plan 1. Acute cough XR Chest AP/PA and LAT predniSONE (DELTASONE) 20 MG tablet benzonatate (Tessalon Perles) 100 MG capsule 2. Sinusitis, unspecified chronicity, unspecified location doxycycline hyclate (VIBRAMYCIN) 100 MG capsule No follow-ups on file. Medical Decision Making Client pleasant, non-toxic in NAD with productive cough onset the last week of May, sinus congestion, rhinorrhea, post-nasal drainage. Nasal drainage is clear to yellow. No sinus pain. No ST. Productive cough of brown sputum. Cough worst upon awakening. No wheezing or SOB. Ill for three weeks so no need for COVID-19 screening. Chest Xray to rule out pneumonia. Consider: Sinusitis, LRTI/Bronchitis/Pneumonia. See H&P Chest XR - will call with final impression with any abnormalities. Sinusitis - Doxy x 10 days Cough - [facility] Additional Clinical Comments X-ray Documentation: I have personally reviewed the images. My impression is no obvious infiltrates. Radiology over-read pending. Subjective 37 y.o. male presents with Sinusitis (Sinus and drainage x3 weeks. Cough. Will be traveling out of the country and would like checked for possible antibiotic treatment. Has not tried OTC medications,) Client with productive cough for three weeks. Sinus congestion and drainage. See client answers. Cough This is a new problem. The current episode started 1 to 4 weeks ago. The problem has been waxing and waning. The problem occurs every few minutes. The cough is Productive of sputum and productive of brown sputum. Associated symptoms include nasal congestion, postnasal drip and rhinorrhea. Pertinent negatives include no chest pain, chills, ear congestion, fever, headaches, heartburn, hemoptysis, myalgias, rash, sore throat, shortness of breath, sweats, weight loss or wheezing. Nothing aggravates the symptoms. Risk factors for lung disease include animal exposure and travel. Review Of Systems Review of Systems Constitutional: Negative for chills, fever and weight loss. HENT: Positive for postnasal drip and rhinorrhea. Negative for congestion and sore throat. No new loss of taste or smell. Respiratory: Positive for cough. Negative for hemoptysis, shortness of breath and wheezing. Cardiovascular: Negative for chest pain. Gastrointestinal: Negative for diarrhea, heartburn, nausea and vomiting. Musculoskeletal: Negative for myalgias. Skin: Negative for rash. Neurological: Negative for headaches. Medical History Past Medical History: Diagnosis Date Acute bilateral low back pain without sciatica 03/04/2019 Constipation, chronic LLQ abdominal pain PVC (premature ventricular contraction) Past Surgical History: Procedure Laterality Date COLONOSCOPY N/A 10/18/2019 Procedure: COLONOSCOPY; Surgeon: Vick Sun MD; Location: [facility] [place] [facility]; Service: General Surgery WISDOM TOOTH EXTRACTION Patient Active Problem List Diagnosis Constipation, chronic Symptomatic PVCs Non-seasonal allergic rhinitis PND (post-nasal drip) Cough Social History Social History Tobacco Use Smoking status: Never Smokeless tobacco: Never Vaping Use Vaping Use: Never used Substance Use Topics Alcohol use: Yes Comment: OCCASSIONAL Drug use: Never Family History Family History Problem Relation Age of Onset Hypertension Father Bipolar disorder Sister Diabetes Maternal Grandmother Heart disease Maternal Grandmother Stroke Maternal Grandfather Dementia Paternal Grandmother Objective Physical Exam BP 125/88 (BP Location: Left arm, Patient Position: Sitting, BP Cuff Size: Adult) Pulse 95 Temp 98 F (36.7 C) (Oral) Resp 16 Ht 6' Wt 92.1 kg (203 lb) SpO2 96% BMI 27.53 kg/m Vision/Hearing Exam:No results found. Physical Exam Vitals and nursing note reviewed. Constitutional: General: He is not in acute distress. Appearance: Normal appearance. He is not ill-appearing, toxic-appearing or diaphoretic. HENT: Head: Normocephalic and atraumatic. Right Ear: Tympanic membrane, ear canal and external ear normal. Left Ear: Tympanic membrane, ear canal and external ear normal. Nose: Mucosal edema and congestion present. Mouth/Throat: Lips: [place]. Mouth: Mucous membranes are moist. Pharynx: Oropharynx is clear. Comments: Drainage in posterior throat. Cardiovascular: Rate and Rhythm: Normal rate and regular rhythm. Heart sounds: Normal heart sounds. Pulmonary: Effort: Pulmonary effort is normal. No respiratory distress. Breath sounds: Normal breath sounds. No wheezing or rales. Skin: General: Skin is warm and dry. Neurological: Mental Status: He is alert. Psychiatric: Mood and Affect: Mood normal. Behavior: Behavior normal. Procedure Notes Procedures Results No results found for this or any previous visit (from the past 168 hour(s)). XR Chest AP/PA and LAT (Results Pending) Orders Placed This Visit Orders Placed This Encounter Procedures XR Chest AP/PA and LAT Medication List At End Of Visit Current Outpatient Medications Medication Sig Dispense Refill benzonatate (Tessalon Perles) 100 MG capsule Take one or two capsules every 8 hours as needed for cough. Do not chew. . 60 capsule 1 doxycycline hyclate (VIBRAMYCIN) 100 MG capsule Take 1 (one) capsule (100 mg total) by mouth 2 (two) times a day for 10 days . 20 capsule 0 fexofenadine-pseudoePHEDrine (Sruthi-D 12 Hour) 60-120 mg per tablet Take 1 (one) tablet by mouth 2 (two) times a day . 60 tablet 2 fluticasone propionate (FLONASE) 50 mcg/actuation nasal spray Instill 2 (two) sprays into each nostril daily . 16 g 2 metoprolol succinate (TOPROL-XL) 25 MG 24 hr tablet Take 1 (one) tablet (25 mg total) by mouth daily . predniSONE (DELTASONE) 20 MG tablet Take 2 tablets daily for 5 days. . 10 tablet 0 No current facility-administered medications for this visit. Patient Instructions Thank you for choosing [facility] for your healthcare needs today. I sent in an antibiotic that covers both sinusitis/bronchitis and pneumonia. I will call with the final radiology report with any abnormalities. Take prednisone early with food to prevent insomnia and indigestion. Do not chew the cough pills. Follow up persistent/worsening symptoms of concern as needed. Answers submitted by the patient for this visit: Cough Questionnaire (Submitted on 06/18/2022) Chief Complaint: Cough Chronicity: new Onset: 1 to 4 weeks ago Progression since onset: waxing and waning Frequency: every few minutes Cough characteristics: productive of sputum, productive of brown sputum chest pain: No chills: No ear congestion: No ear pain: No fever: No headaches: Yes heartburn: No hemoptysis: No myalgias: No nasal congestion: Yes postnasal drip: Yes rash: No rhinorrhea: Yes shortness of breath: No sore throat: No sweats: No weight loss: No wheezing: No Aggravated by: nothing Risk factors for lung disease: animal exposure, travel documented in this encounter [facility] 01-11-2021 History of Present illness Narrative Images from the original note were not included. Bart Hooker 1985 [id number] HPI: Patient was here today for an acute visit complaining of cough. Patient complains of mild to moderate intermittent nonproductive cough almost for the past 45 days. No associated symptoms or shortness of breath or subjective wheezing. No known specific triggering or aggravating factors for his cough but he feels some tickle or secretions in the back of the throat that he needs to keep clearing. States that he recently went on a camping trip to [place] for a week and he did not have any significant symptoms of cough when he was on the camping trip but the symptoms have recurred after he returned home. No known new allergens at home. He has 2 pet dogs at home but have had them for a while. He has not tried any OTC medications for this problem. He is Covid vaccinated. No known prior personal history or family history of asthma. Patient Active Problem List Diagnosis Constipation, chronic Symptomatic PVCs Non-seasonal allergic rhinitis PND (post-nasal drip) Cough Past Medical History: Diagnosis Date Acute bilateral low back pain without sciatica 03/04/2019 Constipation, chronic LLQ abdominal pain PVC (premature ventricular contraction) Past Surgical History: Procedure Laterality Date COLONOSCOPY N/A 10/18/2019 Procedure: COLONOSCOPY; Surgeon: Vick Sun MD; Location: [facility]; Service: General Surgery WISDOM TOOTH EXTRACTION Social History Socioeconomic History Marital status: Spouse name: Not on file Number of children: Not on file Years of education: Not on file Highest education level: Not on file Occupational History Not on file Tobacco Use Smoking status: Never Smoker Smokeless tobacco: Never Used Vaping Use Vaping Use: Never used Substance and Sexual Activity Alcohol use: Yes Comment: OCCASSIONAL Drug use: Never Sexual activity: Yes Partners: Female control/protection: Surgical Other Topics Concern Not on file Social History Narrative Not on file Social Determinants of Health Financial Resource Strain: Difficulty of Paying Living Expenses: Not on file Food Insecurity: Worried About Running Out of Food in the Last Year: Not on file Ran Out of Food in the Last Year: Not on file Transportation Needs: Lack of Transportation (Medical): Not on file Lack of Transportation (Non-Medical): Not on file Physical Activity: Days of Exercise per Week: Not on file Minutes of Exercise per Session: Not on file Stress: Feeling of Stress : Not on file Social Connections: Frequency of Communication with Friends and Family: Not on file Frequency of Social Gatherings with Friends and Family: Not on file Attends [employer] Services: Not on file Active Member of Clubs or Organizations: Not on file Attends Club or Organization Meetings: Not on file Marital Status: Not on file Housing Stability: Unable to Pay for Housing in the Last Year: Not on file Number of Places Lived in the Last Year: Not on file Unstable Housing in the Last Year: Not on file Family History Problem Relation Age of Onset Hypertension Father Bipolar disorder Sister Diabetes Maternal Grandmother Heart disease Maternal Grandmother Stroke Maternal Grandfather Dementia Paternal Grandmother Review of Systems Constitutional: Negative for chills, diaphoresis, fatigue, fever and unexpected weight change. HENT: Positive for postnasal drip. Negative for congestion, rhinorrhea, sinus pressure, sneezing and sore throat. Respiratory: Negative for shortness of breath and wheezing. Cardiovascular: Negative for chest pain, palpitations and leg swelling. Neurological: Negative for dizziness, light-headedness and headaches. Physical Exam: Vitals: 01/11/21 0812 BP: 125/83 BP Location: Right arm Patient Position: Sitting BP Cuff Size: Adult Pulse: 96 Resp: 18 Temp: 98.3 F (36.8 C) TempSrc: Temporal SpO2: 97% Weight: 93.4 kg (206 lb) Height: 6' Physical Exam Constitutional: General: He is not in acute distress. Appearance: Normal appearance. HENT: Nose: Right Sinus: Maxillary sinus tenderness present. No frontal sinus tenderness. Left Sinus: Maxillary sinus tenderness present. No frontal sinus tenderness. Mouth/Throat: Pharynx: No pharyngeal swelling or oropharyngeal exudate. Comments: Positive mild postnasal drip Cardiovascular: Rate and Rhythm: Normal rate and regular rhythm. Heart sounds: Normal heart sounds. Pulmonary: Effort: Pulmonary effort is normal. No respiratory distress. Breath sounds: Normal breath sounds. No wheezing or rales. Assessment & Plan: 1. Cough COVID-19, Molecular Pending external COVID-19 lab result XR Chest AP/PA and LAT 2. PND (post-nasal drip) 3. Non-seasonal allergic rhinitis, unspecified trigger Persistent symptoms of nonproductive cough: Most likely secondary to allergic rhinosinusitis and postnasal drip. He was prescribed Flonase nasal spray and Sruthi-D. Ordered a chest x-ray to rule out any pulmonary pathology. Patient was also advised to look out for any known specific triggering or aggravating factors and try to avoid exposure to them as much as possible. Also ordered a Covid test just to rule out. Return in about 2 months (around 03/13/2021), or if symptoms worsen or fail to improve. Patient education & instructions given for: Advised patient about possible common adverse-effects from the medications, but also recommended to review the medication information package inserts for complete list of adverse effects/contraindications, drug interactions etc., before starting any new medication. Patient was also advised to immediately discontinue the medication and notify us or go to a nearby ER if experiencing any severe adverse affects from the medications. All the addressed problems were discussed with the patient and advice given to call with any concerns or return to the office or go to a nearby ER if the symptoms do not improve or worsen or new symptoms develop. If any referrals were placed or tests ordered at today's visit, the patient was instructed to call the office if they are not notified about the scheduling of referral or tests, within 2 weeks of today's visit. Health maintenance/preventive screening reviewed / ordered: Offered age-appropriate preventive services and screening. Please note: Portions of this chart may have been created with Audience voice recognition software. Occasional wrong-word or sound-like substitutions may have occurred due to inherent limitations of the voice recognition software. Please read the chart carefully and recognize, using context, where the substitutions have occurred. documented in this encounter [facility] Evaluation note Diagnosis Cough- Primary PND (post-nasal drip) Postnasal drip Non-seasonal allergic rhinitis, unspecified trigger [facility]ough [facility] Diagnosis Acute cough- Primary Sinusitis, unspecified chronicity, unspecified location [facility]* Diagnosis LLQ abdominal pain- Primary Abdominal pain, left lower quadrant Testicular pain, left Unspecified disorder of male genital organs Screening for hyperlipidemia Screening for lipoid disorders Encounter for screening for HIV Need for hepatitis C screening test Special screening examination for other specified viral diseases [facility] Diagnosis Left hydrocele- Primary Unspecified hydrocele Left varicocele Scrotal varices [facility]* Diagnosis Left varicocele- Primary Scrotal varices Left hydrocele Unspecified hydrocele Chronic idiopathic constipation Unspecified constipation [facility]* Diagnosis Pneumonia of left lower lobe due to infectious organism- Primary Acute cough [facility] noteNo assessment information availableWMercy [facility] Work Phone: Instructions* Attachments The following attachments cannot be sent through Care Everywhere. * Varicocele: General Info (Croatian) * Varicocele Repair: Pre-op (Croatian) * Hydrocelectomy: Pre-op (Croatian) * Testicular Pain (Croatian) * Testicular Self-Exam (Croatian) * Epididymitis and Orchitis (Croatian) * Constipation (Croatian) documented in this encounterOhioHealthInstructions* Attachments The following attachments cannot be sent through Care Everywhere. * Pneumonia (Cro[place]ian) documented in this encounterOhioHealthReason for referral (narrative)No reason for referral information availableWMercy Memorial Hospital Work Phone: Summary Purpose Family History No Family History Records Found Relationship Condition Age at Onset Recorded Date/T [place] grandfather Cerebrovascular accident (CVA) Unknown grandmother Myocardial infarction Unknown Advance Directives No Advanced Directives Records FoundDocuments on File Type Date Recorded Patient Orthopaedic Doctor Expl anation Advance Directives and Livin g Will 03/19/2019 8:11 AM Documents on File Type Date Recorded Patient Orthopaedic Doctor Expl anation Advance Directives and Livin g Will 03/19/2019 8:11 AM Documents on File Type Date Recorded Patient Orthopaedic Doctor Expl anation Advance Directives and Livin g Will 06/10/2019 9:07 AM Documents on File Type Date Recorded Patient Orthopaedic Doctor Expl anation Advance Directives and Livin g Will 06/10/2019 9:07 AM Documents on File Type Date Recorded Patient Orthopaedic Doctor Expl anation Advance Directives and Livin g Will 09/23/2019 12:00 AM Documents on File Type Date Recorded Patient Orthopaedic Doctor Expl anation Advance Directives and Livin g Will 10/18/2019 11:06 AM Documents on File Type Date Recorded Patient Orthopaedic Doctor Expl anation Advance Directives and Living Will Documents on File Type Date Recorded Patient Orthopaedic Doctor Expl anation Advance Directives and Livin g Will 01/11/2021 8:39 AM Reason for Referral Status Reason Specialty Diagnoses / Procedures Referre d By Contact Referred To Contact Closed Radiology Diagnoses LLQ abdominal pain Procedures CT Abdomen Pelvis With Contrast Fran Watson MD [address] [place] [id number] Status Reason Specialty Diagnoses / Procedures Referred By Contact Referred To Contact Authorized General Surgery Diagnoses LLQ abdominal pain Fran Watson MD [address] [place], [place] [id number] Vick Sun MD [address] [facility] [address] [place] [address] Status Reason Specialty Diagnoses / Procedures Referred By Contact Referred To Contact Pending Review Radiology Diagnoses LLQ abdominal pain Procedures CT Abdomen Pelvis With Contrast Fran Watson MD [address] [place], [place] [id number] Specialty Diagnoses / Procedures Referred By Contac t Referred To Contact Radiology Diagnoses Testicular pain, left Procedures US Testicle With Color Flow Fran Watson MD [address] [place] [id number] Referral ID Status Reason Start Date Expiration Date V isits Requested Visits Authorized [id number] New Request 04/19/2023 04/18/2024 1 1 Specialty Diagnoses / Procedures Referred By Contac t Referred To Contact Radiology Diagnoses LLQ abdominal pain Testicular pain, left Procedures CT Abdomen Pelvis With Contrast Fran Watson MD [address] [id number] Referral ID Status Reason Start Date Expiration Date V isits Requested Visits Authorized [id number] New Request 04/19/2023 04/18/2024 1 1 Specialty Diagnoses / Procedures Referred By Contac t Referred To Contact Urology Diagnoses Left hydrocele Left varicocele Fran Watson MD [address] [id number] Referral ID Status Reason Start Date Expiration Date V isits Requested Visits Authorized [id number] Authorized 05/01/2023 04/30/2024 1 1 Assessments Diagnosis LLQ abdominal pain Abdominal pain, left lower quadrant Diagnosis Constipation, chronic Unspecified constipation LLQ abdominal pain Abdominal pain, left lower quadrant Colitis, acute Acute bilateral low back pain without sciatica Diagnosis Acute pharyngitis, unspecified etiology Constipation, chronic Unspecified constipation LLQ abdominal pain Abdominal pain, left lower quadrant Diagnosis LLQ abdominal pain Abdominal pain, left lower quadrant Constipation, chronic Unspecified constipation Diagnosis LLQ abdominal pain Abdominal pain, left lower quadrant Constipation, chronic Unspecified constipation Diagnosis LLQ abdominal pain Abdominal pain, left lower quadrant Constipation, chronic Unspecified constipation Diagnosis LLQ abdominal pain Abdominal pain, left lower quadrant Constipation, chronic Unspecified constipation Diagnosis LLQ abdominal pain Abdominal pain, left lower quadrant Constipation, chronic Unspecified constipation Diagnosis LLQ abdominal pain Abdominal pain, left lower quadrant Constipation, chronic Unspecified constipation Screening for viral disease Special screening examination for unspecified viral disease Diagnosis Constipation, chronic Unspecified constipation LLQ abdominal pain Abdominal pain, left lower quadrant Diagnosis LLQ abdominal pain Abdominal pain, left lower quadrant Acute bilateral low back pain without sciatica Constipation, chronic Unspecified constipation History of Present Illness * Fran Watson MD - 03/21/2019 10:38 AM EST Bart Hooker 1985 [id number] HPI: Patient was here today for a follow-up on his abdominal pain, lower back pain and also recent test results. Abdominal pain: Patient stated that he has been not had abdominal pain for approximately 2 weeks after his last visit here and then his symptoms have recurred 4 days ago. His main abdominal pain now is in the left lower quadrant. Denies any associated fever and chills, diarrhea, blood in the stool.He has been taking OTC MiraLAX in the past couple of days. Has been drinking plenty of water also. His recent CT scan of the abdomen showed: Moderate colonic stool burden with questionable minimal sigmoid colitis. There is no bowel obstruction. No acute solid organ pathology. No calcified gallstones. Hence, he was prescribed antibiotics since after his recent CT scan results for possible sigmoid colitis. Patient has been taking both Cipro and Flagyl without any significant adverse effect so far. No known personal or family history of inflammatory bowel disease. Patient stated today that his lower back pain symptoms have significantly improved compared to lastvisit though he still has mild intermittent symptoms. Patient Active Problem List Diagnosis Constipation, chronic Acute bilateral low back pain without sciatica LLQ abdominal pain Symptomatic PVCs Colitis, acute Past Medical History: Diagnosis Date PVC (premature ventricular contraction) Past Surgical History: Procedure Laterality Date WISDOM TOOTH EXTRACTION Social History Socioeconomic History Marital status: Spouse name: Not on file Number of children: Not on file Years of education: Not on file Highest education level: Not on file Occupational History Not on file Social Needs Financial resource strain: Not on file Food insecurity Worry: Never true Inability: Never true Transportation needs Medical: Not on file Non-medical: Not on file Tobacco Use Smoking status: Never Smoker Smokeless tobacco: Never Used Substance and Sexual Activity Alcohol use: Yes Frequency: 2-4 times a month Comment: OCCASSIONAL Drug use: Never Sexual activity: Yes Partners: Female control/protection: Surgical Lifestyle Physical activity Days per week: Not on file Minutes per session: Not on file Stress: Not on file Relationships Social connections Talks on phone: Not on file Gets together: Twice a week Attends zoroastrianism service: Not on file Active member of club or organization: Not on file Attends meetings of clubs or organizations: Not on file Relationship status: Not on file Other Topics Concern Not on file Social History Narrative Not on file Family History Problem Relation Age of Onset Hypertension Father Bipolar disorder Sister Diabetes Maternal Grandmother Heart disease Maternal Grandmother Stroke Maternal Grandfather Dementia Paternal Grandmother Review of Systems Constitutional: Negative for chills, diaphoresis, fatigue and fever. Respiratory: Negative for cough, shortness of breath and wheezing. Cardiovascular: Negative for chest pain, palpitations and leg swelling. Gastrointestinal: Negative for abdominal distention, blood in stool, diarrhea, nausea, rectal pain and vomiting. Neurological: Negative for dizziness, light-headedness and headaches. Physical Exam: Vitals: 03/21/19 0941 BP: 130/87 BP Location: Right arm Patient Position: Sitting BP Cuff Size: Adult Pulse: 73 Resp: 16 Temp: 98.1 F (36.7 C) TempSrc: Oral SpO2: 98% Weight: 87.5 kg (193 lb) Height: 6' Physical Exam Constitutional: He appears well-nourished. No distress. Cardiovascular: Normal rate, regular rhythm, normal heart sounds and intact distal pulses. No murmur heard. Pulmonary/Chest: Effort normal and breath sounds normal. No respiratory distress. He has no wheezes. He has no rales. Abdominal: Soft. Bowel sounds are normal. He exhibits no distension and no mass. There is no hepatosplenomegaly. There is abdominal tenderness. There is no rebound, no guarding and no CVA tenderness. Mild left lower quadrant abdominal tenderness Musculoskeletal: Comments: No spinal or paraspinal muscle tenderness in the lumbar region Assessment & Plan: 1. Constipation, chronic 2. LLQ abdominal pain 3. Colitis, acute 4. Acute bilateral low back pain without sciatica Left lower quadrant abdominal pain and possible sigmoid colitis recent CT scan: I have had a long discussion about possible etiology for his abdominal pain symptoms and recent CT scan findings. I think that patient's symptoms are possibly secondary to constipation with moderate amount of stool burden in the colon and may be due to mild sigmoid colitis. I have discussed possible etiology for colitis as well. He was advised to continue stool softener plus fiber laxative plus adequate amounts of water and high-fiber rich diet regimen to treat his constipation. Advised to finish the course of antibiotics as prescribed. I have also discussed possible referral to gastroenterology for a colonoscopy which patient deferred at this time. He would like to try the medication regimen first and see howhe responds. Acute lower back pain: Most likely secondary to muscle spasm. Symptoms seem to have improved now. Return in about 1 month (around 04/21/2019), or if symptoms worsen or fail to improve. Patient education & instructions given for: Patient was advised to avoid smoking, alcohol and any illicit drug abuse. Patient was also counseled for fall precautions. Details of medical condition explained and patient/caregiver was warned about the adverse consequences of uncontrolled medical conditions. Also cautioned about possible common adverse-effects and drug interactions of prescribed/OTC medications and also OTC/herbal supplements. Patient was recommended to review the medication information pamphlets/package inserts for complete list of adverse effects/contraindications, drug interactions etc., before starting any new medication. Patient was advisedto watch for any adverse effects, and instructed to immediately discontinue the medication and callus or go to ER if experiencing any adverse affects from the medications. Advised not to drive/drinkalcohol/use heavy machinery when taking narcotic/other sedating medications. Counseling for diet and exercise provided. All the addressed problems were discussed with the patient and advice given to call with any concerns or return to the office or go to a nearby ER if the symptoms do not improve or worsen or new symptoms develop. If any referrals were placed or tests ordered at today's visit, the patient was instructed to call the office if they haven't heard anything about the scheduling of referral or tests, within 2 weeks of today's visit. Health maintenance/preventive screening reviewed / ordered: Offered age- appropriate preventive services and screening. Please note: Portions of this chart may have been created with Audience voice recognition software. Occasional wrong-word or sound-like substitutions may have occurred due to inherent limitations of the voice recognition software. Please read the chart carefully and recognize, using context, where the substitutions have occurred. Fran Watson MD documented in this encounter* Fran Watson MD - 04/30/2019 5:52 PM EST Bart Hooker 1985 [id number] HPI: Patient was here today for a follow-up on his symptoms of abdominal pain, constipation also complains of sore throat, fever. Today, patient complained of moderate sore throat associated with fever since yesterday morning. Patient stated that his and children were diagnosed with strep throat and not taking antibiotics currently. He also has mild to moderate intermittent generalized body aches but no symptoms of runnynose, coughing, swollen glands. No recent travel. He has been taking OTC ibuprofen for pain and fever control. Abdominal pain and constipation: Patient has not had any significant symptoms of left lower quadrant abdominal pain since after his last visit here though he continues to have some symptoms of constipation off and on. Has not been taking Colace or MiraLAX on a regular basis. Has not been compliant with adequate water intake and high-fiber rich diet either. Patient Active Problem List Diagnosis Constipation, chronic LLQ abdominal pain Symptomatic PVCs Past Medical History: Diagnosis Date Acute bilateral low back pain without sciatica 03/04/2019 PVC (premature ventricular contraction) Past Surgical History: Procedure Laterality Date WISDOM TOOTH EXTRACTION Social History Socioeconomic History Marital status: Spouse name: Not on file Number of children: Not on file Years of education: Not on file Highest education level: Not on file Occupational History Not on file Social Needs Financial resource strain: Not on file Food insecurity Worry: Never true Inability: Never true Transportation needs Medical: Not on file Non-medical: Not on file Tobacco Use Smoking status: Never Smoker Smokeless tobacco: Never Used Substance and Sexual Activity Alcohol use: Yes Frequency: 2-4 times a month Comment: OCCASSIONAL Drug use: Never Sexual activity: Yes Partners: Female control/protection: Surgical Lifestyle Physical activity Days per week: Not on file Minutes per session: Not on file Stress: Not on file Relationships Social connections Talks on phone: Not on file Gets together: Twice a week Attends zoroastrianism service: Not on file Active member of club or organization: Not on file Attends meetings of clubs or organizations: Not on file Relationship status: Not on file Other Topics Concern Not on file Social History Narrative Not on file Family History Problem Relation Age of Onset Hypertension Father Bipolar disorder Sister Diabetes Maternal Grandmother Heart disease Maternal Grandmother Stroke Maternal Grandfather Dementia Paternal Grandmother Review of Systems Constitutional: Positive for fatigue and fever. Negative for chills, diaphoresis and unexpected weight change. HENT: Positive for sore throat. Negative for congestion, ear pain, hearing loss, sinus pressure andsneezing. Respiratory: Negative for cough, shortness of breath and wheezing. Cardiovascular: Negative for chest pain, palpitations and leg swelling. Gastrointestinal: Negative for abdominal distention, blood in stool, diarrhea, nausea, rectal pain and vomiting. Endocrine: Negative for cold intolerance, heat intolerance, polydipsia, polyphagia and polyuria. Neurological: Negative for dizziness, light-headedness and headaches. Physical Exam: Vitals: 04/30/19 1630 BP: 133/77 BP Location: Right arm Patient Position: Sitting BP Cuff Size: Adult Pulse: (!) 123 Resp: 14 Temp: (!) 102.6 F (39.2 C) TempSrc: Oral SpO2: 96% Weight: 86.7 kg (191 lb 3.2 oz) Height: 6' Physical Exam Constitutional: He appears well-nourished. No distress. HENT: Right Ear: Hearing, tympanic membrane and ear canal normal. Left Ear: Hearing, tympanic membrane and ear canal normal. Nose: Right sinus exhibits no maxillary sinus tenderness and no frontal sinus tenderness. Left sinus exhibits no maxillary sinus tenderness and no frontal sinus tenderness. Mouth/Throat: Mucous membranes are normal. Oropharyngeal exudate and posterior oropharyngeal erythema present. Cardiovascular: Regular rhythm, normal heart sounds and intact distal pulses. Tachycardia present. No murmur heard. Pulmonary/Chest: Effort normal and breath sounds normal. No respiratory distress. He has no wheezes. He has no rales. Abdominal: Soft. Bowel sounds are normal. He exhibits no distension. There is no abdominal tenderness. Lymphadenopathy: Head (right side): No submental and no submandibular adenopathy present. Head (left side): No submental and no submandibular adenopathy present. He has no cervical adenopathy. Assessment & Plan: 1. Acute pharyngitis, unspecified etiology 2. Constipation, chronic 3. LLQ abdominal pain Acute pharyngitis: Possibly strep pharyngitis with family members confirmed strep. Patient was prescribed azithromycin. Advised fluids and good rest. He was also counseled for precautionary measures to prevent the spread of infection. Advised to take Tylenol 500 mg every 6 hours as needed for pain and fever control. Left lower quadrant abdominal pain and constipation: Abdominal pain symptoms seem to have resolved now but patient still continues to have symptoms of constipation. Hence, he was advised to take stool softener as needed for constipation and also continue MiraLAX as needed. He was again counseled for adequate amounts of water intake and high-fiber rich diet. Return if symptoms worsen or fail to improve. Patient education & instructions given for: Patient was advised to avoid smoking, alcohol and any illicit drug abuse. Patient was also counseled for fall precautions. Details of medical condition explained and patient/caregiver was warned about the adverse consequences of uncontrolled medical conditions. Also cautioned about possible common adverse-effects and drug interactions of prescribed/OTC medications and also OTC/herbal supplements. Patient was recommended to review the medication information pamphlets/package inserts for complete list of adverse effects/contraindications, drug interactions etc., before starting any new medication. Patient was advisedto watch for any adverse effects, and instructed to immediately discontinue the medication and callus or go to ER if experiencing any adverse affects from the medications. Advised not to drive/drinkalcohol/use heavy machinery when taking narcotic/other sedating medications. Counseling for diet and exercise provided. All the addressed problems were discussed with the patient and advice given to call with any concerns or return to the office or go to a nearby ER if the symptoms do not improve or worsen or new symptoms develop. If any referrals were placed or tests ordered at today's visit, the patient was instructed to call the office if they haven't heard anything about the scheduling of referral or tests, within 2 weeks of today's visit. Health maintenance/preventive screening reviewed / ordered: Offered age- appropriate preventive services and screening. Please note: Portions of this chart may have been created with Audience voice recognition software. Occasional wrong-word or sound-like substitutions may have occurred due to inherent limitations of the voice recognition software. Please read the chart carefully and recognize, using context, where the substitutions have occurred. Fran Watson MD documented in this encounter* Fran Watson MD - 06/10/2019 9:09 AM EDT Bart Hooker 1985 [id number] HPI: Patient was here today for a follow-up on his symptoms of abdominal pain. Patient stated today that he has had 2-3 episodes of left lower quadrant abdominal pain in the past3 to 4 weeks. Patient stated that he has had 2 episodes of sharp brief left lower quadrant abdominal pain and each episode lasting for 5 to 10 seconds. These 2 episodes have happened 3 to 4 weeks ago. Stated today that he also has had mild spasms like abdominal pain in the left lower quadrant, morethan a week ago. He has not had any significant pain in the past 1 week. No specific triggering, aggravating or relieving factors. Patient states today that he has not been experiencing any significant symptoms of constipation lately and he has been compliant with MiraLAX, plenty of water on a daily basis and has been having good normal soft bowel movements almost every day. Patient Active Problem List Diagnosis Constipation, chronic LLQ abdominal pain Symptomatic PVCs Past Medical History: Diagnosis Date Acute bilateral low back pain without sciatica 03/04/2019 PVC (premature ventricular contraction) Past Surgical History: Procedure Laterality Date WISDOM TOOTH EXTRACTION Social History Socioeconomic History Marital status: Spouse name: Not on file Number of children: Not on file Years of education: Not on file Highest education level: Not on file Occupational History Not on file Social Needs Financial resource strain: Not on file Food insecurity Worry: Never true Inability: Never true Transportation needs Medical: Not on file Non-medical: Not on file Tobacco Use Smoking status: Never Smoker Smokeless tobacco: Never Used Substance and Sexual Activity Alcohol use: Yes Frequency: 2-4 times a month Comment: OCCASSIONAL Drug use: Never Sexual activity: Yes Partners: Female control/protection: Surgical Lifestyle Physical activity Days per week: Not on file Minutes per session: Not on file Stress: Not on file Relationships Social connections Talks on phone: Not on file Gets together: Twice a week Attends zoroastrianism service: Not on file Active member of club or organization: Not on file Attends meetings of clubs or organizations: Not on file Relationship status: Not on file Other Topics Concern Not on file Social History Narrative Not on file Family History Problem Relation Age of Onset Hypertension Father Bipolar disorder Sister Diabetes Maternal Grandmother Heart disease Maternal Grandmother Stroke Maternal Grandfather Dementia Paternal Grandmother Review of Systems Constitutional: Negative for chills, diaphoresis, fatigue, fever and unexpected weight change. Respiratory: Negative for cough, shortness of breath and wheezing. Cardiovascular: Negative for chest pain, palpitations and leg swelling. Gastrointestinal: Negative for abdominal distention, blood in stool, diarrhea, nausea, rectal pain and vomiting. Endocrine: Negative for cold intolerance, heat intolerance, polydipsia, polyphagia and polyuria. Neurological: Negative for dizziness, light-headedness and headaches. Physical Exam: Vitals: 06/10/19 0841 BP: 120/81 Pulse: 91 Resp: 18 Temp: 98.5 F (36.9 C) TempSrc: Oral SpO2: 98% Weight: 87.2 kg (192 lb 3.2 oz) Height: 6' Physical Exam Constitutional: He appears well-nourished. No distress. Cardiovascular: Normal rate, regular rhythm, normal heart sounds and intact distal pulses. No murmur heard. Pulmonary/Chest: Effort normal and breath sounds normal. No respiratory distress. He has no wheezes. He has no rales. Abdominal: Soft. Bowel sounds are normal. He exhibits no distension. There is no hepatosplenomegaly. There is no abdominal tenderness. There is no CVA tenderness. Assessment & Plan: 1. LLQ abdominal pain XR Abdomen AP Ambulatory referral to General Surgery 2. Constipation, chronic XR Abdomen AP Left lower quadrant abdominal pain and chronic constipation: Abdominal pain ? Secondary to constipation an stool burden, ?Musculoskeletal pain, ?Mild diverticulitis. Patient's last episode was more than a week ago. Patient seems to have had some recurrence of the symptoms of left lower quadrant abdominal pain though he has not had any significant symptoms of constipation lately. I have had a longdiscussion about possible etiology for left lower quadrant abdominal pain. Ordered an abdominal x-ray. Patient was also referred to general surgery for a possible colonoscopy. I have again reviewed CT scan from March 2019 and discussed the results in detail with him. Return in about 6 weeks (around 07/22/2019), or if symptoms worsen or fail to improve. Patient education & instructions given for: Patient was advised to avoid smoking, alcohol and any illicit drug abuse. Patient was also counseled for fall precautions. Details of medical condition explained and patient/caregiver was warned about the adverse consequences of uncontrolled medical conditions. Also cautioned about possible common adverse-effects and drug interactions of prescribed/OTC medications and also OTC/herbal supplements. Patient was recommended to review the medication information pamphlets/package inserts for complete list of adverse effects/contraindications, drug interactions etc., before starting any new medication. Patient was advisedto watch for any adverse effects, and instructed to immediately discontinue the medication and callus or go to ER if experiencing any adverse affects from the medications. Advised not to drive/drinkalcohol/use heavy machinery when taking narcotic/other sedating medications. Counseling for diet and exercise provided. All the addressed problems were discussed with the patient and advice given to call with any concerns or return to the office or go to a nearby ER if the symptoms do not improve or worsen or new symptoms develop. If any referrals were placed or tests ordered at today's visit, the patient was instructed to call the office if they haven't heard anything about the scheduling of referral or tests, within 2 weeks of today's visit. Health maintenance/preventive screening reviewed / ordered: Offered age- appropriate preventive services and screening. Please note: Portions of this chart may have been created with Audience voice recognition software. Occasional wrong-word or sound-like substitutions may have occurred due to inherent limitations of the voice recognition software. Please read the chart carefully and recognize, using context, where the substitutions have occurred. Fran Watson MD documented in this encounter* Vick Sun MD - 06/11/2019 9:40 AM EDT [facility] [address] (11) [facility] [address] [facility] [id number] Patient: Bart Hooker Age: 34 y.o. Race: [1] Chief Complaint: Chief Complaint Patient presents with Abdominal Pain 1. LLQ abdominal pain Ambulatory referral to General Surgery Case Request Operating Room: COLONOSCOPY 2. Constipation, chronic Case Request Operating Room: COLONOSCOPY Date: 06/11/19 Physicians: Fran Watson MD (Family); Fran Watson* (Referring) HPI: Last fall, this 34-year-old gentleman, who averages bowel movements every 2 or 3 days for mostof his life, began to have a fullness that was uncomfortable in the left lower quadrant. Occasionally, it would be associated with back pain in the low back as well. Plain x-rays done in urgent care demonstrated a large amount of stool. He subsequently went to his PCP and CT demonstrated not only a large amount of stool, but possibly a mild colitis in the sigmoid colon. He was treated with a weekof antibiotics but did not really notice any improvement during that time. He was also started on abowel regimen that included stool softeners, prune juice, and MiraLAX and began to move his bowels every day. Coinciding with that, the discomfort began to go away by the first of the year. For the next month or 2 things were good but he is now again experiencing harder stools and experiencing the discomfort. He would not say his bowel movements are every 3 days, but for the most part they are probably every 2 days. YES NO [] [x] Change in bowel habits? [x] [] Constipation [] [x] Diarrhea? [] [x] Blood in stool? [] [x] Mucus in your stool? [] [x] Decrease in caliber of your stool? [] [x] Heme positive stool [] [x] Have you recently been diagnosed with anemia by your family doctor? [] [x] Do you have any family members with a history of Colon Cancer? Past Histories: Allergies: Penicillins Patient's Medications New Prescriptions No medications on file Previous Medications METOPROLOL SUCCINATE (TOPROL-XL) 50 MG 24 HR TABLET Take 25 mg by mouth daily . POLYETHYLENE GLYCOL (MIRALAX) 17 GRAM POWDER Take 17 g by mouth daily as needed . Modified Medications No medications on file Discontinued Medications DOCUSATE SODIUM (COLACE) 100 MG CAPSULE Take 2 (two) capsules (200 mg total) by mouth 2 (two) timesa day . Patient Active Problem List Diagnosis Constipation, chronic LLQ abdominal pain Symptomatic PVCs Past Medical History: Diagnosis Date Acute bilateral low back pain without sciatica 03/04/2019 PVC (premature ventricular contraction) Past Surgical History: Procedure Laterality Date WISDOM TOOTH EXTRACTION Social History Socioeconomic History Marital status: Spouse name: Not on file Number of children: Not on file Years of education: Not on file Highest education level: Not on file Occupational History Not on file Social Needs Financial resource strain: Not on file Food insecurity Worry: Never true Inability: Never true Transportation needs Medical: Not on file Non-medical: Not on file Tobacco Use Smoking status: Never Smoker Smokeless tobacco: Never Used Substance and Sexual Activity Alcohol use: Yes Frequency: 2-4 times a month Comment: OCCASSIONAL Drug use: Never Sexual activity: Yes Partners: Female control/protection: Surgical Lifestyle Physical activity Days per week: Not on file Minutes per session: Not on file Stress: Not on file Relationships Social connections Talks on phone: Not on file Gets together: Twice a week Attends zoroastrianism service: Not on file Active member of club or organization: Not on file Attends meetings of clubs or organizations: Not on file Relationship status: Not on file Other Topics Concern Not on file Social History Narrative Not on file Data Unavailable Social History Tobacco Use Smoking Status Never Smoker Smokeless Tobacco Never Used Social History Substance and Sexual Activity Alcohol Use Yes Frequency: 2-4 times a month Comment: OCCASSIONAL Social History Substance and Sexual Activity Drug Use Never Family History Problem Relation Age of Onset Hypertension Father Bipolar disorder Sister Diabetes Maternal Grandmother Heart disease Maternal Grandmother Stroke Maternal Grandfather Dementia Paternal Grandmother REVIEW OF SYSTEMS Pertinent positives and negatives are listed in HPI, PMSH, SH, ALL above and in Details below. The following systems were reviewed: [x] Const (fevers, chills, wt. loss, fatigue) [x] CV (HTN, CP, BROWN, edema, DVT) [x] Resp (SOB, pleurisy, asthma, apnea) [x] GI (N, V, D, C, M, abd pain, appetite) [x] Musc (back pain, joint stiffness, gout) [x] Neuro (seizures, syncope, paralysis) [x] Psych (depression, anxiety) [x] Endo (hot/cold intol, polyuria[DM]) [x] Hem/Lymph (Anemia, LA, bleeding) [x] Allerg/Immun (seasonal, immuniz) [x] Eyes (diplopia, cataracts) [x] ENT/mouth (dysphagia, epistaxis) [x] (dysuria, hematuria) [x] Skin/Breast (moles, rash, lumps, nipple changes) Details: See scanned ROS Physical Exam: BP 120/84 Pulse 79 Temp 97.9 F (36.6 C) (Oral) Ht 6' Wt 87.1 kg (192 lb) SpO2 99% BMI 26.04 kg/m Body mass index is 26.04 kg/m . HEENT: PERRLA EOMI MMM anicteric Neck: supple without thyromegaly or masses Cardiac: regular rate and rhythm without murmur Lungs: clear to auscultation Back: negative CVA tenderness Abdomen: normoactive bowel sounds, soft, nondistended, no masses, organomegaly, rebound, or guarding. He has mild tenderness in spotty in patchy areas across the lower quadrants. Extremities: no cyanosis, clubbing, or edema Neuro: awake, alert, oriented 3, normal affect, no focal deficits Assessment: Constipation with left lower quadrant pain Plan: Colonoscopy The procedure, risks, and benefits were discussed with the patient. We also discussed additional attempts at more regularity first, but he prefers proceeding with a colonoscopy. He seemed understand everything that we discussed and consents to proceed. 1. LLQ abdominal pain Ambulatory referral to General Surgery Case Request Operating Room: COLONOSCOPY 2. Constipation, chronic Case Request Operating Room: COLONOSCOPY Orders Placed This Encounter Procedures Case Request Operating Room: COLONOSCOPY Vick Sun MD documented in this encounter* Vick Sun MD - 09/23/2019 8:08 AM EDT [facility] [address] (11) [facility] [address] [facility] [id number] Patient: Bart Hooker Age: 34 y.o. Race: [1] Chief Complaint: Chief Complaint Patient presents with Consult colonoscopy 1. LLQ abdominal pain Case Request Operating Room: COLONOSCOPY 2. Constipation, chronic Case Request Operating Room: COLONOSCOPY 3. Screening for viral disease COVID-19, Molecular Date: 09/23/19 Physicians: Fran Watson MD (Family); No ref. provider found (Referring) HPI: I first saw this 34-year-old male in June when he presented with a history of fairly profoundconstipation and discomfort in the left lower quadrant. At least once he went to an urgent care andx-rays demonstrated a large amount of stool. There was a possible colitis in the sigmoid colon on asubsequent CT as well. There was no improvement with antibiotics. He was started on a bowel regimenand his bowels did improve. We had planned for colonoscopy in June and then the pandemic canceled all elective procedures. In the meantime, he began taking Metamucil fiber Gummies and increasing his fluid intake and his bowelsimproved dramatically. As they improved, he began to forget to take it and his symptoms recurred a few weeks ago. He is now back on the regimen and is starting to feel better. Past Histories: Allergies: Penicillins Patient's Medications New Prescriptions No medications on file Previous Medications METOPROLOL SUCCINATE (TOPROL-XL) 50 MG 24 HR TABLET Take 25 mg by mouth daily . Modified Medications No medications on file Discontinued Medications POLYETHYLENE GLYCOL (MIRALAX) 17 GRAM POWDER Take 17 g by mouth daily as needed . Patient Active Problem List Diagnosis Constipation, chronic LLQ abdominal pain Symptomatic PVCs Past Medical History: Diagnosis Date Acute bilateral low back pain without sciatica 03/04/2019 PVC (premature ventricular contraction) Past Surgical History: Procedure Laterality Date WISDOM TOOTH EXTRACTION Social History Socioeconomic History Marital status: Spouse name: Not on file Number of children: Not on file Years of education: Not on file Highest education level: Not on file Occupational History Not on file Social Needs Financial resource strain: Not on file Food insecurity Worry: Never true Inability: Never true Transportation needs Medical: Not on file Non-medical: Not on file Tobacco Use Smoking status: Never Smoker Smokeless tobacco: Never Used Substance and Sexual Activity Alcohol use: Yes Frequency: 2-4 times a month Comment: OCCASSIONAL Drug use: Never Sexual activity: Yes Partners: Female control/protection: Surgical Lifestyle Physical activity Days per week: Not on file Minutes per session: Not on file Stress: Not on file Relationships Social connections Talks on phone: Not on file Gets together: Twice a week Attends zoroastrianism service: Not on file Active member of club or organization: Not on file Attends meetings of clubs or organizations: Not on file Relationship status: Not on file Other Topics Concern Not on file Social History Narrative Not on file Data Unavailable Social History Tobacco Use Smoking Status Never Smoker Smokeless Tobacco Never Used Social History Substance and Sexual Activity Alcohol Use Yes Frequency: 2-4 times a month Comment: OCCASSIONAL Social History Substance and Sexual Activity Drug Use Never Family History Problem Relation Age of Onset Hypertension Father Bipolar disorder Sister Diabetes Maternal Grandmother Heart disease Maternal Grandmother Stroke Maternal Grandfather Dementia Paternal Grandmother REVIEW OF SYSTEMS Pertinent positives and negatives are listed in HPI, PMSH, SH, ALL above and in Details below. The following systems were reviewed: [x] Const (fevers, chills, wt. loss, fatigue) [x] CV (HTN, CP, BROWN, edema, DVT) [x] Resp (SOB, pleurisy, asthma, apnea) [x] GI (N, V, D, C, M, abd pain, appetite) [x] Musc (back pain, joint stiffness, gout) [x] Neuro (seizures, syncope, paralysis) [x] Psych (depression, anxiety) [x] Endo (hot/cold intol, polyuria[DM]) [x] Hem/Lymph (Anemia, LA, bleeding) [x] Allerg/Immun (seasonal, immuniz) [x] Eyes (diplopia, cataracts) [x] ENT/mouth (dysphagia, epistaxis) [x] (dysuria, hematuria) [x] Skin/Breast (moles, rash, lumps, nipple changes) Details: See scanned ROS Physical Exam: BP 120/84 (BP Location: Left arm, Patient Position: Sitting, BP Cuff Size: Adult) Pulse 74 Temp97.1 F (36.2 C) (Oral) Ht 6' Wt 90.3 kg (199 lb) SpO2 98% BMI 26.99 kg/m Body mass index is 26.99 kg/m . HEENT: PERRLA EOMI MMM anicteric Neck: supple without thyromegaly or masses Cardiac: regular rate and rhythm without murmur Lungs: clear to auscultation Back: negative CVA tenderness Abdomen: normoactive bowel sounds, soft, nondistended, no masses, organomegaly, rebound, or guarding. He is mildly tender in the lower quadrants. Extremities: no cyanosis, clubbing, or edema Neuro: awake, alert, oriented 3, normal affect, no focal deficits Assessment: Lower abdominal pain, constipation Plan: Colonoscopy The procedure, risks, and benefits were again discussed with the patient in detail. He seemed understand everything that we discussed and at least at this point wishes to proceed. If things improve dramatically, he may elect to cancel the colonoscopy. 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 I discussed with the patient that while we practice appropriate precautions consistent withprevailing medical standards, any contact with any person in any setting at this time presents a risk of transmission and contraction of COVID-19. The patient was also informed that COVID-19 testing w ithin 72 hours of the procedure will be required. The patient wishes to proceed. 1. LLQ abdominal pain Case Request Operating Room: COLONOSCOPY 2. Constipation, chronic Case Request Operating Room: COLONOSCOPY 3. Screening for viral disease COVID-19, Molecular Orders Placed This Encounter Procedures COVID-19, Molecular Case Request Operating Room: COLONOSCOPY Vick Sun MD documented in this encounter* Fran Watson MD - 03/04/2019 5:10 PM EST Bart Hooker 1985 [id number] HPI: This patient comes here for an acute visit after more than 2 years, complaining of abdominal pain and also lower back pain. Patient states today that he started having upper abdominal pain almost 3 weeks ago when he ate a large meal with his friends. He also has had some heartburn and epigastric discomfort at that time and his symptoms have lasted for a couple of days and then progressively subsided but then he started having pain that has extended to the lower abdomen when the upper abdominal pain has subsided. He stated that his regular bowel patterns are one normal bowel movement every 2 to 3 days. But he has hadsome significant symptoms of constipation without having much bowel movements for more than 3 days and hence he went to an urgent care almost 2 weeks ago, was evaluated with an abdominal x-ray which showed a lot of stool in the colon and hence was advised to take stool softeners and fiber laxatives. Patient stated that he has been taking OTC fiber laxative, prune juice and stool softener almost every day for the past few days and has had good normal bowel movements yesterday and today but he still continues to have pain in the left lower quadrant of the abdomen. He denies any fever and chills, blood in the stool or black-colored stools. The pain symptoms are intermittent. Today, patient also complains of mild to moderate intermittent lower back pain that started a week ago without any known associated specific triggering factors or trauma. The pain/discomfort is usually triggered by movement or trying to bend. He is currently not taking any pain medications for thisproblem. Patient Active Problem List Diagnosis Constipation, chronic Acute bilateral low back pain without sciatica LLQ abdominal pain Symptomatic PVCs Past Medical History: Diagnosis Date PVC (premature ventricular contraction) Past Surgical History: Procedure Laterality Date WISDOM TOOTH EXTRACTION Social History Socioeconomic History Marital status: Spouse name: Not on file Number of children: Not on file Years of education: Not on file Highest education level: Not on file Occupational History Not on file Social Needs Financial resource strain: Not on file Food insecurity Worry: Never true Inability: Never true Transportation needs Medical: Not on file Non-medical: Not on file Tobacco Use Smoking status: Never Smoker Smokeless tobacco: Never Used Substance and Sexual Activity Alcohol use: Yes Frequency: 2-4 times a month Comment: OCCASSIONAL Drug use: Never Sexual activity: Yes Partners: Female control/protection: Surgical Lifestyle Physical activity Days per week: Not on file Minutes per session: Not on file Stress: Not on file Relationships Social connections Talks on phone: Not on file Gets together: Twice a week Attends zoroastrianism service: Not on file Active member of club or organization: Not on file Attends meetings of clubs or organizations: Not on file Relationship status: Not on file Other Topics Concern Not on file Social History Narrative Not on file Family History Problem Relation Age of Onset Hypertension Father Bipolar disorder Sister Diabetes Maternal Grandmother Heart disease Maternal Grandmother Stroke Maternal Grandfather Dementia Paternal Grandmother Review of Systems Constitutional: Negative for chills, diaphoresis, fatigue and fever. Respiratory: Negative for cough, shortness of breath and wheezing. Cardiovascular: Negative for chest pain, palpitations and leg swelling. Gastrointestinal: Negative for abdominal distention, blood in stool, diarrhea, nausea, rectal pain and vomiting. Genitourinary: Negative for dysuria, frequency and hematuria. Neurological: Negative for dizziness, light-headedness and headaches. Physical Exam: Vitals: 03/04/19 1652 03/04/19 1655 BP: (!) 132/90 131/88 Pulse: 77 Resp: 18 Temp: 97 F (36.1 C) TempSrc: Oral SpO2: 96% Weight: 85.6 kg (188 lb 12.8 oz) Height: 6' Physical Exam Constitutional: He appears well-nourished. No distress. Cardiovascular: Normal rate, regular rhythm, normal heart sounds and intact distal pulses. No murmur heard. Pulmonary/Chest: Effort normal and breath sounds normal. No respiratory distress. He has no wheezes. He has no rales. Abdominal: Soft. Bowel sounds are normal. He exhibits no distension and no mass. There is no hepatosplenomegaly. There is abdominal tenderness. There is no rebound, no guarding and no CVA tenderness. Mild left lower quadrant abdominal tenderness Musculoskeletal: Comments: Positive mild bilateral paraspinal muscle tenderness in the mid lumbar region and reproducible pain with flexion of the lower back Assessment & Plan: 1. LLQ abdominal pain CT Abdomen Pelvis With Contrast CBC and Differential Comprehensive Metabolic Panel Lipase 2. Acute bilateral low back pain without sciatica 3. Constipation, chronic Left lower quadrant abdominal pain: Possibly secondary to constipation and stool accumulation. But I have discussed various other possible etiology for his symptoms including a possibility of mild acute diverticulitis. Ordered a CT scan of the abdomen and pelvis for further evaluation. We will alsotry to obtain the abdomen x-ray done in the urgent care 2 weeks ago. Patient was counseled for high-fiber rich diet and adequate amounts of water intake. Advised to continue laxatives and stool softeners for now. Patient deferred antibiotic use for possible diverticulitis at this time. He was advised to immediately go to the hospital ER if his symptoms get any worse. Ordered lab tests including lipase. Acute lower back pain: Most likely secondary to muscle spasm. Patient was counseled for simple muscle stretching exercises. Advised to take Tylenol 500 mg every 6 hours as needed for pain control. Return in about 3 weeks (around 03/25/2019), or if symptoms worsen or fail to improve. Patient education & instructions given for: Patient was advised to avoid smoking, alcohol and any illicit drug abuse. Patient was also counseled for fall precautions. Details of medical condition explained and patient/caregiver was warned about the adverse consequences of uncontrolled medical conditions. Also cautioned about possible common adverse-effects and drug interactions of prescribed/OTC medications and also OTC/herbal supplements. Patient was recommended to review the medication information pamphlets/package inserts for complete list of adverse effects/contraindications, drug interactions etc., before starting any new medication. Patient was advisedto watch for any adverse effects, and instructed to immediately discontinue the medication and callus or go to ER if experiencing any adverse affects from the medications. Advised not to drive/drinkalcohol/use heavy machinery when taking narcotic/other sedating medications. Counseling for diet and exercise provided. All the addressed problems were discussed with the patient and advice given to call with any concerns or return to the office or go to a nearby ER if the symptoms do not improve or worsen or new symptoms develop. If any referrals were placed or tests ordered at today's visit, the patient was instructed to call the office if they haven't heard anything about the scheduling of referral or tests, within 2 weeks of today's visit. Health maintenance/preventive screening reviewed / ordered: Offered age- appropriate preventive services and screening. Over the last 2 weeks, how often have you been bothered by any of the following problems? Little interest or pleasure in doing things: Not at all Feeling down, depressed, or hopeless: Several days PHQ-2 Total Score: 1 Trouble falling or staying asleep, or sleeping too much: Several days Feeling tired or having little energy: Not at all Poor appetite or overeating: Not at all Feeling bad about yourself - or that you are a failure or have let yourself or your family down: Not at all Trouble concentrating on things, such as reading the newspaper or watching television: Not at all Moving or speaking so slowly that other people could have noticed. Or the opposite - being so fidgety or restless that you have been moving around a lot more than usual: Not at all Thoughts that you would be better off , or of hurting yourself in some way: Not at all PHQ-9 Total Score: 2 PHQ was reviewed with patient today. Please note: Portions of this chart may have been created with Audience voice recognition software. Occasional wrong-word or sound-like substitutions may have occurred due to inherent limitations of the voice recognition software. Please read the chart carefully and recognize, using context, where the substitutions have occurred. Fran Watson MD documented in this encounter Chief Complaint and Reason for Visit Chief Complaint Admit Date Pain in right finger(s) October 11, 2024 12:33pm Additional Source Comments (unrecognized sect ion and content) No Status Records FoundNo Status Records FoundNo Status Records FoundNo Status Records FoundNo Status Records FoundNo Status Records Found INFORMATION SOURCE (unrecogn ized section and content) DATE CREATED AUTHOR 09/27/2017 [facility] DATE CREATED AUTHOR AUTHOR'S ORGANIZ ATION 01/12/2021 [facility] DATE CREATED AUTHOR AUTHOR'S ORGANIZ ATION 05/23/2023 [facility] DATE CREATED AUTHOR AUTHOR'S ORGANIZ ATION [facility] DATE CREATED AUTHOR AUTHOR'S ORGANIZ ATION 03/28/2024 [facility] DATE CREATED AUTHOR AUTHOR'S ORGANIZ ATION 02/11/2025 [facility] Reason for Visit (unrecogniz ed section and content) Status Reason Specialty Diagnoses / Procedures Referre d By Contact Referred To Contact Closed Radiology Diagnoses LLQ abdominal pain Procedures CT Abdomen Pelvis With Contrast Fran Watson MD [address] [place] [address] Reason Comments Follow-up F/U on chronic medic al problems Reason Comments Follow-up F/U on chronic medic al problems, sore throat and fever with possible strep Reason Comments Follow-up abd. pain Reason Comments Abdominal Pain Status Reason Specialty Diagnoses / Procedures Referred By Contact Referred To Contact Closed General Surgery Diagnoses LLQ abdominal pain Fran Watson MD [address] [place], [place] [id number] Vick Sun MD [address] [place] [address] Reason Comments Consult colonoscopy Status Reason Specialty Diagnoses / Procedures Referre d By Contact Referred To Contact Diagnoses LLQ abdominal pain Constipation, chronic LLQ abdominal pain [R10.32] Constipation, chronic [K59.09] Procedures SD COLONOSCOPY FLX DX W/COLLJ SPEC WHEN PFRMD Vick Sun MD [address] [place] [address] Reason Comments Abdominal Pain Back Pain Reason Comments Acute Visit cough Reason Onset Date Comments Medication Refill 02/05/2021 Reason Comments Sinusitis Sinus and drainage x 3 weeks. Cough. [place] be traveling out of the country and would like checked for possible antibiotic treatment. Has not tried OTC medications, Reason Comments Abdominal Pain LLQ abdominal pain a nd left scrotal pain Reason Comments left varicocele Specialty Diagnoses / Procedures Referred By Erin calloway Referred To Contact Urology Diagnoses Left hydrocele Left varicocele Fran Watson MD [id number] [facility] [place] [address] [place] [address] Referral ID Status Reason Start Date Expiration Date Visits Re quested Visits Authorized [id number] Closed 05/01/2023 04/30/2024 1 1 Reason Comments Illness Fever x's 2 days up to 103F, 98.3F todayBad KUMAR, not a lot of relief from ibuprofen, productive cough, brown mucus Vick Sun MD - 10/18/2019 2:18 PM EDTMVick taylor MD - 09/23/2019 8:08 AM EDT H&P Notes (unrecognized sect ion and content) INTERVAL HISTORY AND PHYSICAL Patient Name: Bart Hooker Admit Date: MR #: [id number] : 1985 The H&P has been reviewed and the patient has been examined. I concur with the findings of the H&P. There are no significant changes. It is appropriate to proceed with the planned procedure. Vick Sun MD 10/18/2019 2:18 PM [facility] [address] (11) [facility] [address] [facility] [phone] Patient: Bart Hooker Age: 34 y.o. Race: [1] Chief Complaint: Chief Complaint Patient presents with Consult colonoscopy 1. LLQ abdominal pain Case Request Operating Room: COLONOSCOPY 2. Constipation, chronic Case Request Operating Room: COLONOSCOPY 3. Screening for viral disease COVID-19, Molecular Date: 09/23/19 Physicians: Fran Watson MD (Family); No ref. provider found (Referring) HPI: I first saw this 34-year-old male in June when he presented with a history of fairly profound constipation and discomfort in the left lower quadrant. At least once he went to an urgent care and x-rays demonstrated a large amount of stool. There was a possible colitis in the sigmoid colon on a subsequent CT as well. There was no improvement with antibiotics. He was started on a bowel regimen and his bowels did improve. We had planned for colonoscopy in June and then the pandemic canceled all elective procedures. In the meantime, he began taking Metamucil fiber Gummies and increasing his fluid intake and his bowels improved dramatically. As they improved, he began to forget to take it and his symptoms recurred a few weeks ago. He is now back on the regimen and is starting to feel better. Past Histories: Allergies: Penicillins Patient's Medications New Prescriptions No medications on file Previous Medications METOPROLOL SUCCINATE (TOPROL-XL) 50 MG 24 HR TABLET Take 25 mg by mouth daily . Modified Medications No medications on file Discontinued Medications POLYETHYLENE GLYCOL (MIRALAX) 17 GRAM POWDER Take 17 g by mouth daily as needed . Patient Active Problem List Diagnosis Constipation, chronic LLQ abdominal pain Symptomatic PVCs Past Medical History: Diagnosis Date Acute bilateral low back pain without sciatica 03/04/2019 PVC (premature ventricular contraction) Past Surgical History: Procedure Laterality Date WISDOM TOOTH EXTRACTION Social History Socioeconomic History Marital status: Spouse name: Not on file Number of children: Not on file Years of education: Not on file Highest education level: Not on file Occupational History Not on file Social Needs Financial resource strain: Not on file Food insecurity Worry: Never true Inability: Never true Transportation needs Medical: Not on file Non-medical: Not on file Tobacco Use Smoking status: Never Smoker Smokeless tobacco: Never Used Substance and Sexual Activity Alcohol use: Yes Frequency: 2-4 times a month Comment: OCCASSIONAL Drug use: Never Sexual activity: Yes Partners: Female control/protection: Surgical Lifestyle Physical activity Days per week: Not on file Minutes per session: Not on file Stress: Not on file Relationships Social connections Talks on phone: Not on file Gets together: Twice a week Attends zoroastrianism service: Not on file Active member of club or organization: Not on file Attends meetings of clubs or organizations: Not on file Relationship status: Not on file Other Topics Concern Not on file Social History Narrative Not on file Data Unavailable Social History Tobacco Use Smoking Status Never Smoker Smokeless Tobacco Never Used Social History Substance and Sexual Activity Alcohol Use Yes Frequency: 2-4 times a month Comment: OCCASSIONAL Social History Substance and Sexual Activity Drug Use Never Family History Problem Relation Age of Onset Hypertension Father Bipolar disorder Sister Diabetes Maternal Grandmother Heart disease Maternal Grandmother Stroke Maternal Grandfather Dementia Paternal Grandmother REVIEW OF SYSTEMS Pertinent positives and negatives are listed in HPI, PMSH, SH, ALL above and in Details below. The following systems were reviewed: [x] Const (fevers, chills, wt. loss, fatigue) [x] CV (HTN, CP, BROWN, edema, DVT) [x] Resp (SOB, pleurisy, asthma, apnea) [x] GI (N, V, D, C, M, abd pain, appetite) [x] Musc (back pain, joint stiffness, gout) [x] Neuro (seizures, syncope, paralysis) [x] Psych (depression, anxiety) [x] Endo (hot/cold intol, polyuria[DM]) [x] Hem/Lymph (Anemia, LA, bleeding) [x] Allerg/Immun (seasonal, immuniz) [x] Eyes (diplopia, cataracts) [x] ENT/mouth (dysphagia, epistaxis) [x] (dysuria, hematuria) [x] Skin/Breast (moles, rash, lumps, nipple changes) Details: See scanned ROS Physical Exam: BP 120/84 (BP Location: Left arm, Patient Position: Sitting, BP Cuff Size: Adult) Pulse 74 Temp 97.1 F (36.2 C) (Oral) Ht 6' Wt 90.3 kg (199 lb) SpO2 98% BMI 26.99 kg/m Body mass index is 26.99 kg/m . HEENT: PERRLA EOMI MMM anicteric Neck: supple without thyromegaly or masses Cardiac: regular rate and rhythm without murmur Lungs: clear to auscultation Back: negative CVA tenderness Abdomen: normoactive bowel sounds, soft, nondistended, no masses, organomegaly, rebound, or guarding. He is mildly tender in the lower quadrants. Extremities: no cyanosis, clubbing, or edema Neuro: awake, alert, oriented 3, normal affect, no focal deficits Assessment: Lower abdominal pain, constipation Plan: Colonoscopy The procedure, risks, and benefits were again discussed with the patient in detail. He seemed understand everything that we discussed and at least at this point wishes to proceed. If things improve dramatically, he may elect to cancel the colonoscopy. 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 I discussed with the patient that while we practice appropriate precautions consistent with prevailing medical standards, any contact with any person in any setting at this time presents a risk of transmission and contraction of COVID-19. The patient was also informed that COVID-19 testing within 72 hours of the procedure will be required. The patient wishes to proceed. 1. LLQ abdominal pain Case Request Operating Room: COLONOSCOPY 2. Constipation, chronic Case Request Operating Room: COLONOSCOPY 3. Screening for viral disease COVID-19, Molecular Orders Placed This Encounter Procedures COVID-19, Molecular Case Request Operating Room: COLONOSCOPY Vick Sun MD documented in this encounter Margi Tolbert RN - 10/18/2019 3:15 PM EDT Nursing Notes (unrecognized section and content) dci teaching completed. Printed copy given to pt. documented in this encounter Care Teams (unrecognized sec tion and content) Group Account Director Relationship Specialty Start Date End Date Fran Watson MD [address] [place] [address] PCP - General Internal Medicine 03/04/19 Group Account Director Relationship Specialty Start Date End Date Fran Watson MD [address] [place] [address] PCP - General Internal Medicine 03/04/19 Group Account Director Relationship Specialty Start Date End Date Fran Watson MD [address] [place] [address] PCP - General Internal Medicine 03/04/19 Fran Watson MD [address] [place] [address] PCP - JUAN DAVID Attributed Provider - [employer] 06/01/21 04/02/50 Group Account Director Relationship Specialty Start Date End Date Fran Watson MD [address] [place] [address] PCP - General Internal Medicine 03/04/19 Fran Watson MD [address] [place] [address] PCP - JUAN DAVID Attributed Provider - [employer] 06/01/21 04/02/50 Group Account Director Relationship Specialty Start Date End Date Fran Watson MD [address] [place] [address] PCP - General Internal Medicine 03/04/19 Fran Watson MD [address] [place] [facility] [place] [address] PCP - JUAN DAVID Attributed Provider - [employer] 06/01/21 04/02/50 Group Account Director Relationship Specialty Start Date End Date Fran Watson MD [address] [place] [facility] [place] [address] PCP - General Internal Medicine 03/04/19 Group Account Director Relationship Specialty Start Date End Date Fran Watson MD [address] [place] [facility] [place] [address] PCP - General Internal Medicine 03/04/19 Fran Watson MD [address] [place] [facility] [place] [address] PCP - JUAN DAVID Attributed Provider - [employer] 06/02/23 04/02/50 Team Status: Active Member Role/Relationship Status Dates Dr. Paris Kinsey MD Family Provider Active Dr. Fran Watson MD Primary Care Provider Active Team Status: Inactive Member Role/Relationship Status Dates Dr. Fran Watson MD Primary Care Provider Active Start: October 11, 2024 End: October 11, 2024 EMMANUEL Guerrero Attending Provider Active Start: October 11, 2024 End: October 11, 2024 EMMANUEL Guerrero Referring Provider Active Start: October 11, 2024 End: October 11, 2024 Goals (unrecognized section and content) Goals may be documented in a n alternate section FOR RECORDS PERTAINING TO PATIENTS WHO ARE OR HAVE BEEN ENROLLED IN A CHEMICAL DEPENDENCY/SUBSTANCEABUSE PROGRAM, SOME INFORMATION MAY BE OMITTED. This clinical summary was aggregated from multiple sources. Caution should be exercised in using it in the provision of clinical care. This summary normalizes information from multiple sources, and as a consequence, information in this document may materially change the coding, format and clinical context of patient data. In addition, data may be omitted in some cases. CLINICAL DECISIONS SHOULD BE BASED ON THE PRIMARY CLINICAL RECORDS. [employer] [facility]. provides no warranty or guarantee of the accuracy or completeness of information in this document.
== END | disposition home or self-care (01) ==
LOC: CVS 14:04
PROVIDERS: PCP Internal Medicine; Referring Provider Nurse Practitioner Family; Visit Provider Nurse Practitioner Family
DX: R00.2 Palpitations (principal); I47.20 Ventricular tachycardia, unspecified
CPT/HCPCS: 93306